=== PATIENT | male | born 1955 | race Asian ===

== ENCOUNTER 2025-09-25 12:39 | Inpatient (IN) | payer MEDICAID, OTHER ==
[~2025-09-25] VITALS: Ht 177.8 cm; Wt 66.2 kg
[2025-09-25] MEDS: HYDROcodone-ACET 5/325MG TAB PO ONE (08:57)
--- NOTE | 2025-09-25 15:01 | ED.PDOC ---
Musculoskeletal HPI Comments 70 y/o M, presents to the ED for CC of left-foot pain. Patient states, he has been experiencing left-foot erythema, swelling, and pain x1week. Patient reports, pain to worsen with ambulation and when bearing weight onto his left lower extremity. Patient denies any trauma, injury, fall, numbness, or tingling. Chief Complaint: Lower Extremity Time Seen by MD: 14:35 Reviewed Notes: Nurses Notes, Medications, Allergies Allergies: Coded Allergies: NO KNOWN ALLERGIES (Unverified , 09/25/25) Information Source: Patient Mode of Arrival: Wheelchair Location: Left Extremity Location: Foot Timing: Weeks Prehospital treatment: None Severity: Moderate Able to Move Extremity: Yes Bear Weight: No Pain: Moderate Mechanism: Spontaneous Circumstances: Spontaneous Onset of Symptoms: Spontaneous Symptoms: Swelling, Pain, Erythema DVT Risk Factors: NONE Last Tetanus: Unknown Associated signs and symptoms: Foot pain Past Medical History PAST MEDICAL HISTORY: Denies Surgical History: Denies all surgeries Family History Family History: Unknown Social History Smoker: Non-Smoker Alcohol: Denies ETOH Use Drugs: Denies Drug Use Lives In: Home Constitutional: denies: chills, diaphoresis, fatigue, fever, malaise, sweats, weakness, others EENTM: denies: blurred vision, double vision, ear bleeding, ear discharge, ear drainage, ear pain, ear ringing, eye pain, eye redness, hearing loss, mouth pain, mouth swelling, nasal discharge, nose bleeding, nose congestion, nose pain, photophobia, tearing, throat pain, throat swelling, voice changes, others Respiratory: denies: cough, hemoptysis, orthopnea, SOB at rest, shortness of breath, SOB with excertion, stridor, wheezing, others Cardiovascular: denies: chest pain, dizzy spells, diaphoresis, Dyspnea on exertion, edema, irregular heart beat, left arm pain, lightheadedness, palpitations, PND, syncope, others Gastrointestinal: denies: abdomen distended, abdominal pain, blood streaked bowels, constipated, diarrhea, dysphagia, difficulty swallowing, hematemesis, melena, nausea, poor appetite, poor fluid intake, rectal bleeding, rectal pain, vomiting, others Genitourinary: denies: burning, dysuria, flank pain, frequency, hematuria, incontinence, penile discharge, penile sore, pain, testicle pain, testicle swelling, urgency, others Neurological: denies: dizziness, fainting, headache, left sided numbness, left sided weakness, numbness, paresthesia, pre-existing deficit, right sided numbness, right sided weakness, seizure, speech problems, tingling, tremors, weakness, others Musculoskeletal: reports: others (left foot redness); denies: back pain, gout, joint pain, joint swelling, muscle pain, muscle stiffness, neck pain Integumetry: denies: bruises, change in color, change in hair/nails, dryness, laceration, lesions, lumps, rash, wounds, others Allergic/Immunocompromised: denies: Difficulty Healing, Frequent Infections, Hives, Itching, others Hematologic/Lymphatic: denies: anemia, blood clots, easy bleeding, easy bruising, swollen glands, others Endocrine: denies: excessive hunger, excessive sweating, excessive thirst, excessive urination, flushing, intolerance to cold, intolerance to heat, unexplained weight gain, unexplained weight loss, others Psychiatric: denies: anxiety, bipolar disorder, depression, hopeless, panic disorder, schizophrenia, sleepless, suicidal, others All Other Systems: Reviewed and Negative Physical Exam General Appearance: No Apparent Distress, Normal HEENT: Normal ENT Inspection, Pharynx Normal Neck: Full Range of Motion, Non-Tender, Normal, Normal Inspection Respiratory: Chest Non-Tender, Lungs Clear, No Accessory Muscle Use, No Respiratory Distress, Normal Breath Sounds Cardiovascular: No Edema, No Murmur, No Gallop, Normal Peripheral Pulses, Regular Rate/Rhythm Breast Exam: Deferred Gastrointestinal: No Organomegaly, Non Tender, No Pulsatile Mass, Normal Bowel Sounds, Soft Genitalia: Deferred Pelvic: Deferred Rectal: Deferred Extremities: No calf tenderness, Normal capillary refill, Normal inspection, Normal range of motion, Non-tender, No pedal edema Musculoskeletal : Location: Left Extremity Location: Foot Apperance: Other (erythema, delayed capillary refill) Neurologic: Alert, lapel padder II-XII nml as Tested, No Motor Deficits, Normal Affect, Normal Mood, No Sensory Deficits Cerebellar Function: Normal Reflexes: Normal Skin: Dry, Normal Color, Warm Lymphatic: No Adenopathy Was a procedure done? Was a procedure done?: No Differential Diagnosis EXT Differential Diagnosis: Cellulitis, Deep Vein Thrombosis X-Ray, Labs, Meds, VS Vital Signs Date Time Temp Pulse Resp B/P (MAP) Pulse Ox O2 Delivery O2 Flow Rate FiO2 09/25/25 17:22 94 09/25/25 17:04 98.3 99 16 144/66 (92) 98 98.3 09/25/25 16:37 95 18 98 Room Air* 0 21 09/25/25 15:50 98.6 96 16 102/57 (72) 98 98.6 09/25/25 15:37 98.5 113 18 145/86 (105) 94 98.5 09/25/25 13:40 99.0 110 20 123/74 (90) 97 99.0 09/25/25 12:45 97.0 118 18 136/81 99 97.0 Lab Test 09/25/25 17:12 09/25/25 15:44 09/25/25 14:52 Range/Units Lactic Acid Level Pending 3.5 *H 0.4-2.0 mmol/L Troponin I High Sensitivity 1229 *H 981 *H </=54 ng/L White Blood Count 12.0 H 4.4-10.8 10^3/uL Red Blood Count 4.87 4.5-5.90 10^6/uL Hemoglobin 14.6 13.5-17.5 g/dL Hematocrit 43.4 41.0-53.0 % Mean Corpuscular Volume 89.2 80.0-100.0 fL Mean Corpuscular Hemoglobin 30.0 28.0-32.0 pg Mean Corpuscular Hemoglobin Concent 33.6 32.0-36.0 g/dL Red Cell Distribution Width 13.8 11.8-14.3 % Platelet Count 319 140-450 10^3/uL Mean Platelet Volume 7.1 6.9-10.8 fL Neutrophils (%) (Auto) 81.0 H 37.0-80.0 % Lymphocytes (%) (Auto) 11.6 10.0-50.0 % Monocytes (%) (Auto) 6.8 0.0-12.0 % Eosinophils (%) (Auto) 0.3 0.0-7.0 % Basophils (%) (Auto) 0.3 0.0-2.0 % Neutrophils # (Auto) 9.7 H 1.6-8.6 10 ^3/uL Lymphocytes # (Auto) 1.4 0.4-5.4 10 ^3/uL Monocytes # (Auto) 0.8 0-1.3 10 ^3/uL Eosinophils # (Auto) 0 0-0.8 10 ^3/uL Basophils # (Auto) 0 0-0.2 10 ^3/uL Nucleated Red Blood Cells 0.1 % Prothrombin Time 10.3 9.3-11.8 sec Prothrombin Time INR 0.97 0.9-1.15 Activated Partial Thromboplast Time 27.8 24.5-34.5 SEC Sodium Level 141 136-145 mmol/L Potassium Level 4.8 3.5-5.1 mmol/L Chloride Level 106 98-107 mmol/L Carbon Dioxide Level 25 20-31 mmol/L Anion Gap 10 5-15 Blood Urea Nitrogen 56 H 9-23 mg/dL Creatinine 2.63 H 0.700-1.30 mg/dL Glomerular Filtration Rate Calc 26 >90 mL/min BUN/Creatinine Ratio 21.3 H 10.0-20.0 Serum Glucose 93 74-106 mg/dL Calcium Level 9.8 8.7-10.4 mg/dL B-Type Natriuretic Peptide 45.30 0-100 pg/mL Current Medications Medications (Trade) Dose Ordered Sig/Angelique Route Start Time Stop Time Status Last Admin Sodium Chloride 1,000 ml @ 1,000 mls/hr Q1H ONCE IV 09/25/25 16:00 09/25/25 16:59 DC 09/25/25 15:50 Cefepime HCl 50 ml @ 50 mls/hr ONCE ONCE IV 09/25/25 16:00 09/25/25 16:59 DC 09/25/25 15:53 Vancomycin HCl 250 ml @ 250 mls/hr ONCE ONCE IV 09/25/25 16:00 09/25/25 16:59 DC 09/25/25 17:27 Time of 1ST Reevaluation: 15:05 Reevaluation 1ST: Unchanged Patient Education/Counseling: Diagnosis, Treatment Family Education/Counseling: No Family Present Sepsis Sepsis Reasesment Focused Exam Orders: Laboratory Tests 09/25/25 14:52: Lactic Acid Level 3.5 09/25/25 17:12: Departure 1 Departure Time of Disposition: 17:42 (Patient with decreased circulation to the left foot however he still does have a palpable pulse. Order the patient for CT angio however patient's creatinine does not supported. We will empirically cover patient with a heparin drip and admit patient for vascular evaluation) Impression: Primary Impression: Left leg pain Additional Impressions: Left foot pain Claudication in peripheral vascular disease NSTEMI (non-ST elevated myocardial infarction) Disposition: 09 ADMITTED INPATIENT Admit to: Tele Condition: Guarded Critical Care Note Critical Care Time?: Yes Critical care comment: NSTEMI Authorized and Performed by: Hernandez Butterfield MD Total critical care time: Approximately 39 minutes Due to a high probability of clinically significant, life threatening deterioration, the patient required my highest level of preparedness to intervene emergently and I personally spent this critical care time directly and personally managing the patient. This critical care time included obtaining a history; examining the patient; pulse oximetry; ordering and review of studies; arranging urgent treatment with development of a management plan; evaluation of patient's response to treatment; frequent reassessment; and, discussions with other providers. This critical care time was performed to assess and manage the high probability of imminent, life-threatening deterioration that could result in multi-organ failure. It was exclusive of separately billable procedures and treating other patients and teaching time. Please see my other sections and the rest of the note for further information on patient assessment and treatment. Stability Stability form required: No Heart Score Heart Score: Heart Score Response (Comments) Value History N/A 0 EKG N/A 0 Age N/A 0 Risk Factors N/A 0 Troponin N/A 0 Total 0 I personally scribed for HERNANDEZ BUTTERFIELD MD ([email or web address]) on 09/25/25 at 15:01. Electronically submitted by Dolores Downs ([email or web address]). HERNANDEZ BUTTERFIELD MD Sep 25, 2025 15:01
[2025-09-25 15:23] LABS: Hematocrit 43.4 % (41.0-53.0); Hemoglobin 14.6 g/dL (13.5-17.5); Mean Corpuscular Hemoglobin 30.0 pg (28.0-32.0); Mean Corpuscular Volume 89.2 fL (80.0-100.0); Nucleated Red Blood Cells % 0.1 %
[2025-09-25 15:31] LABS: Chloride 106 mmol/L (98-107); Potassium 4.8 mmol/L (3.5-5.1); Sodium 141 mmol/L (136-145)
[2025-09-25 15:32] LABS: Anion Gap 10 (5-15); Calcium 9.8 mg/dL (8.7-10.4); Carbon Dioxide 25 mmol/L (20-31)
[2025-09-25 15:37] LABS: BUN/Creatinine Ratio 21.3 (10.0-20.0); Glucose 93 mg/dL (74-106)
[2025-09-25 15:39] LABS: Blood Urea Nitrogen 56 mg/dL (9-23); INR 0.97 (0.9-1.15); Partial Thromboplastin Time 27.8 SEC (24.5-34.5); Prothrombin Time 10.3 sec (9.3-11.8)
[2025-09-25] MEDS: SODIUM CHLORIDE 0.9% 1,000 ML IV ONE (15:50)
[2025-09-25] MEDS: CEFEPIME 1GM/50ML 50 ML IV ONE (15:53)
[2025-09-25 15:59] LABS: Lactic Acid w/Reflex 3.5 mmol/L (0.4-2.0)
[2025-09-25 16:37] VITALS: PULSE 95; RESP 18; O2SAT 98
--- NOTE | 2025-09-25 17:20 | DVH ---
EXAM: XY CHEST PORTABLE HISTORY: weakness TECHNIQUE: 1 view of the chest COMPARISON: None FINDINGS/IMPRESSION: LUNGS: No pleural effusion, consolidation, or pneumothorax. MEDIASTINUM: Unremarkable. BONES: No acute osseous abnormality. OTHER: None.
[2025-09-25] MEDS: VANCOMYCIN 1GM/250ML KIT 250 ML IV ONE (17:27)
[2025-09-25] MEDS ORDERED: HEPARIN SODIUM (PORCINE) 5000 UNITS/ML 1ML VIAL IV ONE (17:45)
[2025-09-25] MEDS ORDERED: HEPARIN DRIP/D5W 100UNITS/ML 250 ML IV SCH (17:45)
[2025-09-25] MEDS: HEPARIN SODIUM (PORCINE) 5000 UNITS/ML 1ML VIAL IV ONE (18:26)
[2025-09-25] MEDS: HEPARIN DRIP/D5W 100UNITS/ML 250 ML IV SCH (18:44)
[2025-09-25 18:47] LABS: INR 1.01 (0.9-1.15); Partial Thromboplastin Time 27.6 SEC (24.5-34.5); Prothrombin Time 10.7 sec (9.3-11.8)
[2025-09-25 18:53] LABS: Hematocrit 35.2 % (41.0-53.0); Hemoglobin 12.0 g/dL (13.5-17.5); Mean Corpuscular Hemoglobin 30.2 pg (28.0-32.0); Mean Corpuscular Volume 88.6 fL (80.0-100.0); Nucleated Red Blood Cells % 0.0 %
[2025-09-25 19:22] VITALS: PULSE 84; RESP 15; O2SAT 95
[2025-09-25] MEDS ORDERED: ATORVASTATIN 20 MG TAB PO ONE (21:00)
--- NOTE | 2025-09-25 21:07 | DVHHPRES ---
History of Present Illness Resident Creating Document: CHAITANYA KAHN RESIDENT History of Present Illness Mr Hermilo Rojo, 70-year-old male with no significant past medical history, presented to the ER with the complaints of left foot erythema and swelling, pain since last 1 week. The patient denies any trauma, fall injury, numbness or tingling. The pain is brought on by walking and improves on rest. He also reports having mild chest pain, the patient was not able to describe the characteristics of the pain. He denies any shortness of breath, fever, cough, urinary symptoms or any other complaints. Past medical history: Nothing significant, patient reports having episodes of hypotension. Past surgical history: None Allergies: None Smoke: 2 sticks per day now, before that 20 pack years. Alcohol: Every other day 1 pint Drugs: None Full code Review of Systems Cardiovascular: Chest Pain Allergies: Coded Allergies: NO KNOWN ALLERGIES (Unverified , 09/25/25) Medications Current Medications Medications Dose Ordered Sig/Angelique Route Start Time Stop Time Status Last Admin Dose Admin Heparin Sodium/ Dextrose 250 ml @ 12.24 mls/ hr [id number] IV 09/25/25 17:45 UNV Heparin Sodium/ Dextrose 250 ml @ 8 mls/hr Q24H IV 09/25/25 18:00 09/25/25 18:44 8 MLS/HR Atorvastatin Calcium 40 mg HS PO 09/25/25 22:00 UNV Exam Vital Signs Vital Signs Date Time Temp Pulse Resp B/P (MAP) Pulse Ox O2 Delivery O2 Flow Rate FiO2 09/25/25 19:22 84 15 95 Room Air* 0 21 09/25/25 19:20 97.8 115/61 (79) 97.8 Exam Pt is lying on bed General Appearance: Alert, Oriented X3, Cooperative, Mild distress HEENT: Atraumatic, Mucous membranes moist/pink Respiratory: Clear to auscultation, Normal air movement, No added sounds Cardiovascular: Regular rate, Normal S1, Normal S2, No murmurs Abdominal/ : Active bowel sounds, Soft, no distention, no tenderness Extremities: Left foot erythema and edema, Normal pulses, No tenderness/swelling Skin: No Significant rash, except past surgical scars Neuro: Normal speech, sensorimotor deficits none Psych/Mental Status: Mental status NL, Mood NL Nurse was there as transportation modeler during examination Labs/Xrays Labs Test 09/25/25 18:35 09/25/25 18:01 09/25/25 17:12 09/25/25 14:52 Range/Units White Blood Count 10.6 4.4-10.8 10^3/uL Red Blood Count 3.98 L 4.5-5.90 10^6/uL Hemoglobin 12.0 #L 13.5-17.5 g/dL Hematocrit 35.2 #L 41.0-53.0 % Mean Corpuscular Volume 88.6 80.0-100.0 fL Mean Corpuscular Hemoglobin 30.2 28.0-32.0 pg Mean Corpuscular Hemoglobin Concent 34.0 32.0-36.0 g/dL Red Cell Distribution Width 13.5 11.8-14.3 % Platelet Count 250 140-450 10^3/uL Mean Platelet Volume 7.1 6.9-10.8 fL Neutrophils (%) (Auto) 74.8 37.0-80.0 % Lymphocytes (%) (Auto) 16.0 10.0-50.0 % Monocytes (%) (Auto) 7.9 0.0-12.0 % Eosinophils (%) (Auto) 1.0 0.0-7.0 % Basophils (%) (Auto) 0.3 0.0-2.0 % Neutrophils # (Auto) 7.9 1.6-8.6 10 ^3/uL Lymphocytes # (Auto) 1.7 0.4-5.4 10 ^3/uL Monocytes # (Auto) 0.8 0-1.3 10 ^3/uL Eosinophils # (Auto) 0.1 0-0.8 10 ^3/uL Basophils # (Auto) 0 0-0.2 10 ^3/uL Nucleated Red Blood Cells 0.0 % Prothrombin Time 10.7 9.3-11.8 sec Prothrombin Time INR 1.01 0.9-1.15 Activated Partial Thromboplast Time 27.6 24.5-34.5 SEC Troponin I High Sensitivity 1514 *H </=54 ng/L Lactic Acid Level 1.8 0.4-2.0 mmol/L Sodium Level 141 136-145 mmol/L Potassium Level 4.8 3.5-5.1 mmol/L Chloride Level 106 98-107 mmol/L Carbon Dioxide Level 25 20-31 mmol/L Anion Gap 10 5-15 Blood Urea Nitrogen 56 H 9-23 mg/dL Creatinine 2.63 H 0.700-1.30 mg/dL Glomerular Filtration Rate Calc 26 >90 mL/min BUN/Creatinine Ratio 21.3 H 10.0-20.0 Serum Glucose 93 74-106 mg/dL Calcium Level 9.8 8.7-10.4 mg/dL B-Type Natriuretic Peptide 45.30 0-100 pg/mL SEPSIS Sepsis Screen Date sepsis recognized/suspect: Sep 25, 2025 Time Sepsis recognized/suspect: 1921 Recent Procedure: No On Antibiotic Therapy: No Respiratory Rate >20: No Heart Rate >90: No Temp<36 C (96.8 F) or >38.3 C: No SBP <90 or MAP <65 mmHG: No New Acute Mental Status Change: No Is the patient on CPAP, BIPAP,: No Physician Orders Blood Culture (09/25/25 14:27) Chest Portable (09/25/25 14:27) Notify Md If Map <65 Or Bp<90 (09/25/25 ) Sepsis Reassesment After Fluid (09/25/25 ) Electrocardigram (09/25/25 16:27) Electrocardigram (09/25/25 17:27) Electrocardigram (09/25/25 19:27) Consult Vascular/Endovascular (09/25/25 17:41) Platelet Monitoring (09/25/25 17:41) Vte Protocol Initiated (09/25/25 17:41) Heparin Per Standardized Proce (09/25/25 17:41) Discontinue All Im Injections (09/25/25 17:41) Platelet Monitoring (09/25/25 17:54) Heparin Per Standardized Proce (09/25/25 17:54) Discontinue All Im Injections (09/25/25 17:54) Heparin Drip/D5w 100units/Ml (09/25/25 18:00) Stat Ekg For Chest Pain (09/25/25 17:54) PTPTT (09/26/25 00:00) Heparin Per Pharmacy Protocol (09/25/25 18:04) Admit (09/25/25 20:55) Allergies (09/25/25 20:55) Code Status (09/25/25 20:55) Complete Blood Count (09/26/25 04:00) Comprehensive Metabolic Panel (09/26/25 04:00) Echo 2d Mode Cardiac Dop (09/25/25 20:55) Oxygen By Nasal Cannula (09/25/25 20:55) Notify Of Changes From Base (09/25/25 20:55) Glass Sander For 24 Hours (09/25/25 20:55) Emergency Dysrhythmia Protocol (09/25/25 20:55) Rhythm Strips Once Every Shift (09/25/25 20:55) Bilat Lower Dvt (09/25/25 20:59) Atorvastatin (Lipitor) (09/25/25 21:00) Atorvastatin (Lipitor) (09/25/25 22:00) * Cardiology Consult (09/25/25 20:59) Urinalysis (09/25/25 21:04) Drug Screen (09/25/25 21:04) Bilat Low Ext Art Duplex (09/25/25 21:05) Vital Signs Date Time Temp Pulse Resp B/P (MAP) Pulse Ox O2 Delivery O2 Flow Rate FiO2 09/25/25 19:22 84 15 95 Room Air* 0 21 09/25/25 19:20 97.8 84 15 115/61 (79) 95 97.8 09/25/25 18:53 88 18 129/73 (91) 94 09/25/25 17:22 94 09/25/25 17:04 98.3 99 16 144/66 (92) 98 98.3 09/25/25 16:37 95 18 98 Room Air* 0 21 09/25/25 15:50 98.6 96 16 102/57 (72) 98 98.6 09/25/25 15:37 98.5 113 18 145/86 (105) 94 98.5 09/25/25 13:40 99.0 110 20 123/74 (90) 97 99.0 Laboratory Tests Test 09/25/25 14:52 09/25/25 17:12 09/25/25 18:35 Lactic Acid Level 3.5 mmol/L (0.4-2.0) *H 1.8 mmol/L (0.4-2.0) White Blood Count 12.0 10^3/uL (4.4-10.8) H 10.6 10^3/uL (4.4-10.8) Medications Medications Dose Ordered Sig/Angelique Route Start Time Stop Time Status Last Admin Dose Admin Cefepime HCl 50 ml @ 50 mls/hr ONCE ONCE IV 09/25/25 16:00 09/25/25 16:59 DC 09/25/25 15:53 50 MLS/HR Heparin Sodium (Porcine) 4,000 units ONCE ONCE IV 09/25/25 18:00 09/25/25 18:04 DC 09/25/25 18:26 4,000 UNITS Heparin Sodium/ Dextrose 250 ml @ 8 mls/hr Q24H IV 09/25/25 18:00 09/25/25 18:44 8 MLS/HR Sodium Chloride 1,000 ml @ 1,000 mls/hr Q1H ONCE IV 09/25/25 16:00 09/25/25 16:59 DC 09/25/25 15:50 1,000 MLS/HR Vancomycin HCl 250 ml @ 250 mls/hr ONCE ONCE IV 09/25/25 16:00 09/25/25 16:59 DC 09/25/25 17:27 250 MLS/HR Assessment/Plan Assessment/Plan Left foot cellulitis DVT ruled out Lactic acid downtrending Leukocytosis, downtrending Left lower extremity venous ultrasound: DVT ruled out IV cefepime and IV vancomycin (renal dose adjustment done) Chest pain rule out ACS NSTEMI type 1 versus type 2 ELIS score 3 HEART score 8 TAWNY score 121 EKG: T-wave inversion, ischemic changes Troponin trending up Heparin drip given Atorvastatin 40 mg Cardiology consultation done SHIMON on CKD likely due to VMN SHIMON likely due to cardiorenal syndrome IV fluid Monitor labs GI prophylaxis: Pantoprazole DVT prophylaxis: On heparin drip Diet: Cardiac Goals of care discussed with the patient for more than 27 minutes: Full code status Case discussed with Dr. Archuleta, patient and RN Plan discussed with: Patient, Other (RN) My Orders Orders - CHAITANYA KAHN RESIDENT Procedure Category Date Status Time Admit ADMIT 09/25/25 Transmitted 20:55 Allergies REJI 09/25/25 In Process 20:55 Code Status CODE 09/25/25 Transmitted 20:55 Complete Blood Count LAB 09/26/25 Verified 04:00 Comprehensive LAB 09/26/25 Verified Metabolic Panel 04:00 Echo 2d Mode Cardiac US 09/25/25 Logged DOP 20:55 Oxygen By Nasal RT 09/25/25 Transmitted Cannula 20:55 Notify Of Changes [facility] 09/25/25 In Process From Base 20:55 Glass Sander For [facility] 09/25/25 In Process 24 Hours 20:55 Emergency Dysrhythmia [facility] 09/25/25 In Process Protocol 20:55 Rhythm Strips Once [facility] 09/25/25 In Process Every Shift 20:55 Bilat Lower Dvt US 09/25/25 Logged 20:59 Atorvastatin (Lipitor) PHA 09/25/25 Logged 21:00 Atorvastatin (Lipitor) PHA 09/25/25 Logged 22:00 * Cardiology Consult CONS 09/25/25 Transmitted 20:59 Urinalysis LAB 09/25/25 Logged 21:04 Drug Screen LAB 09/25/25 Logged 21:04 Bilat Low Ext Art US 09/25/25 Verified Duplex 21:05 Visit Coding STANDARD RES Billing Provider: ELIAS ARCHULETA MD Date of Service if different f: Sep 25, 2025 CHAITANYA KAHN RESIDENT Sep 25, 2025 21:07 SHANELL LUGO RESIDENT Sep 26, 2025 02:41
[2025-09-25] MEDS: ATORVASTATIN 20 MG TAB PO SCH (21:49)
[2025-09-25 22:43] LABS: Alanine Aminotransferase 18.0 U/L (7-40); Albumin 3.7 g/dL (3.2-4.8); Alkaline Phosphatase 105.0 U/L (46-116); Bilirubin, Direct 0.1 mg/dL (<0.3); Total Protein 6.1 g/dL (5.7-8.2)
[2025-09-25 22:53] LABS: Bilirubin, Total 0.3 mg/dL (0.2-1.0)
--- NOTE | 2025-09-25 23:14 | DVH ---
Left lower extremity venous duplex Clinical History: Lt foot pain,Rule out DVT Comparison: None Technique: Duplex Doppler evaluation of the deep venous system of the left lower extremity from the common femoral vein to the popliteal vein including color Doppler and spectral/pulsed waveform analysis was performed. Findings: The common femoral vein demonstrates appropriate compressibility and waveform variability. There is compressibility/patency of the great saphenous vein at the proximal thigh. The femoral vein demonstrates appropriate compressibility and waveform variability. The deep femoral vein demonstrates appropriate compressibility and waveform variability. The popliteal vein demonstrates appropriate compressibility and waveform variability. There is normal compressibility at the tibioperoneal trunk. Impression: 1. No left femoropopliteal venous thrombosis. 2. Contralateral common femoral vein is patent.
[2025-09-26] VITALS (10 sets, daily range): BP systolic 94–153; BP diastolic 53–82; PULSE 63–90; RESP 12–18; TEMP 98.4–98.5; O2SAT 95–99
[2025-09-26 00:38] LABS: Urine Protein, UAD Negative (Negative)
[2025-09-26 00:44] LABS: Hematocrit 35.1 % (41.0-53.0); Hemoglobin 11.9 g/dL (13.5-17.5); Mean Corpuscular Hemoglobin 30.1 pg (28.0-32.0); Mean Corpuscular Volume 88.8 fL (80.0-100.0); Nucleated Red Blood Cells % 0.0 %
[2025-09-26 00:51] LABS: Alanine Aminotransferase 18 U/L (7-40); Albumin 3.7 g/dL (3.2-4.8); Alkaline Phosphatase 100 U/L (46-116); Anion Gap 11 (5-15); BUN/Creatinine Ratio 22.0 (10.0-20.0); Carbon Dioxide 22 mmol/L (20-31); Glucose 96 mg/dL (74-106); Potassium 4.4 mmol/L (3.5-5.1); Sodium 142 mmol/L (136-145); Total Protein 6.3 g/dL (5.7-8.2)
[2025-09-26 00:52] LABS: Bilirubin, Total 0.5 mg/dL (0.2-1.0)
[2025-09-26 00:56] LABS: Blood Urea Nitrogen 42 mg/dL (9-23); Calcium 8.4 mg/dL (8.7-10.4); Chloride 109 mmol/L (98-107)
[2025-09-26 01:10] LABS: INR 1.05 (0.9-1.15); Prothrombin Time 11.1 sec (9.3-11.8)
[2025-09-26 01:19] LABS: Partial Thromboplastin Time 102.3 SEC (24.5-34.5)
[2025-09-26] MEDS: CLOPIDOGREL BISULFATE 75 MG TAB PO ONE ×2 (01:27→21:46)
[2025-09-26 01:37] LABS: Amphetamine Screen, Urine Neg (NEGATIVE)
[2025-09-26 01:39] LABS: Barbiturate Scree,Urine Neg (NEGATIVE); Benzodiazephine Screen, Urine Neg (NEGATIVE); Cannabinoid Screen, Urine Neg (NEGATIVE); Cocaine Screen, Urine Neg (NEGATIVE); Opiate Scree,Urine Neg (NEGATIVE); Phencyclidine Screen, Urine Neg (NEGATIVE)
[2025-09-26 02:49] LABS: INR 1.05 (0.9-1.15); Prothrombin Time 11.1 sec (9.3-11.8)
[2025-09-26 03:10] LABS: COVID19 ANTIGEN SOFIA FIA NEGATIVE (NEGATIVE)
[2025-09-26 03:12] LABS: Partial Thromboplastin Time 96.9 SEC (24.5-34.5)
[2025-09-26] MEDS ORDERED: HEPARIN DRIP/D5W 100UNITS/ML 250 ML IV SCH (03:30)
[2025-09-26] MEDS: HEPARIN DRIP/D5W 100UNITS/ML 250 ML IV SCH ×2 (04:37→14:01)
[2025-09-26] MEDS: PANTOPRAZOLE 40 MG TAB PO SCH (05:14)
--- NOTE | 2025-09-26 06:57 | ECG ---
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
[2025-09-26] MEDS ORDERED: VANCOMYCIN PER PHARMACY 0 MG IV SCH (09:30)
[2025-09-26] MEDS: ASPirin-EC 81 mg tab PO SCH (11:07)
[2025-09-26] MEDS: CEFEPIME 1GM/50ML 50 ML IV SCH (11:08)
[2025-09-26 11:20] LABS: Triglycerides 78 mg/dL (< 150)
[2025-09-26 11:23] LABS: Cholesterol 118 mg/dL (< 200); HDL Cholesterol 41 mg/dL (40-59)
--- NOTE | 2025-09-26 11:26 | DVHINCON2 ---
[facility] 09/26/25 1126: Date Seen: Sep 26, 2025 Referring Physician MD Lyn Reason for Consultation NSTEMI, ECG ischemic T-wave changes History of Present Illness This is a 70-year-old man who presented to the emergency room with a chief complaint of left lower extremity pain. The patient reports left lower extremity pain worse upon palpation during the past two weeks and progressively getting worse. During admission he also complained of chest pain described as substernal, squeezing in nature, intermittent, nonradiating, non provoked, and not associated with any other symptoms. At time of assessment the patient denied any active chest pain. He has undergone multiple 12 lead electrocardiogram revealing a sinus rhythm with progressive changes to multiple leads with mild ST-elevation to anterior/inferior leads as well as DC-depression to inferior leads. Troponin levels are trending up with latest at 1,500s ng/L. He is currently on a heparin drip per pharmacy protocol. Significant medical history includes hypertension, dyslipidemia, vitamin-D deficiency, active tobacco use with a history of 20 pack years, and alcohol dependence with intake of hard liquor on daily basis. Past Medical History Past medical history reviewed. No other significant than mentioned above. Past Surgical History Past surgical history reviewed. No other significant than mentioned above. Family History Family history reviewed. Significant for mother with CVA. Social History Denies the use of illicit drugs. See HPI. Allergies: Coded Allergies: NO KNOWN ALLERGIES (Unverified , 09/25/25) Home Meds Home medications reviewed. Current Medications Current Medications Medications (Trade) Dose Ordered Sig/Angelique Route PRN Reason Start Time Stop Time Status Last Admin Heparin Sodium/ Dextrose 250 ml @ 12.24 mls/ hr [id number] IV 09/25/25 17:45 UNV Heparin Sodium/ Dextrose 250 ml @ 8 mls/hr Q24H IV 09/25/25 18:00 09/26/25 03:30 DC 09/25/25 18:44 Atorvastatin Calcium (Lipitor) 40 mg HS PO 09/25/25 21:30 09/25/25 21:49 Acetaminophen/ Hydrocodone Bitart ([place] 5/325MG Tab) 1 tab Q6HPRN PRN PO MODERATE PAIN (4-6 PAIN SCALE) 09/25/25 22:15 Cefepime HCl 50 ml @ 12.5 mls/hr DAILY IV 09/26/25 10:00 09/26/25 11:08 Pantoprazole Sodium (Protonix Tablet) 40 mg DAILY@0600 PO 09/26/25 06:00 09/26/25 05:14 Heparin Sodium/ Dextrose 250 ml @ 5 mls/hr Q24H IV 09/26/25 03:30 09/26/25 03:35 DC Heparin Sodium/ Dextrose 250 ml @ 5 mls/hr Q24H IV 09/26/25 04:30 09/26/25 04:37 Vancomycin HCl 0 ml @ 0 mls/hr PER PHARMACY IV 09/26/25 09:30 Aspirin (Ecotrin Enteric Coated Tablet) 81 mg DAILY PO 09/26/25 10:00 09/26/25 11:07 Review of Systems Constitutional: No symptom reported Ears, Nose, & Throat: No symptom reported Eyes: No symptom reported Neurological: No symptoms reported Pulmonary/Respiratory: No symptom reported Cardiovascular: Chest pain Gastrointestinal: No symptom reported Genitourinary: No symptom reported Musculoskeletal: Left lower extremity pain Skin: No symptom reported Psychiatric: No symptom reported Endocrine: No symptom reported Hemotologic/Lymphatic: No symptom reported Vital Signs Vital Signs Date Time Temp Pulse Resp B/P (MAP) Pulse Ox O2 Delivery O2 Flow Rate FiO2 09/26/25 08:00 71 09/26/25 07:27 18 96 Room Air* 0 21 09/26/25 07:27 98.9 115/65 (82) 98.9 Physical Exam General Appearance: Cooperative. Well developed. Well nourished. In no acute distress Head Exam: Normal inspection Neck Exam: Normal inspection. Non-tender. Normal alignment Pulmonary/Respiratory: Chest non-tender. Clear bilateral breath sounds Cardiovascular/Chest: Regular rate and rhythm. S1, S2. Sinus rhythm with pr ogressive ST-elevation to inferior and anterior leads. No murmurs. No JVD. Peripheral Pulses: 2+ Radial (R). 2+ Radial (L). 2+ Pedal (R). 2+ Pedal (L) Abdominal Exam: Normal bowel sounds. Soft. Ankle Exam: Negative ankle edema Lower extremities: Negative lower extremity edema. Nonpalpable left pedal pulse, dependent rubor present Neuro/Mental Status: A&O x4. Coherent Thoughts/Psych: Normal thought pattern. Appropriate mood and affect. Good judgement and insight Appearance: In no acute distress Skin Exam: Normal inspection. Normal color. Warm. Dry Labs/Diagnostic Data Labs Test 09/26/25 01:50 09/26/25 01:40 09/26/25 00:23 09/26/25 00:14 Range/Units Prothrombin Time 11.1 9.3-11.8 sec Prothrombin Time INR 1.05 0.9-1.15 Activated Partial Thromboplast Time 96.9 *H 24.5-34.5 SEC Influenza Type A Antigen Negative Negative Influenza Type B Antigen Negative Negative SARS-CoV-2 Antigen (Rapid) Negative NEGATIVE Urine Color Colorless Yellow Urine Clarity Clear Clear Urine pH 5.0 5.0-9.0 Urine Specific [place] 1.013 1.001-1.035 Urine Protein Negative Negative Urine Ketones Negative Negative Urine Blood Negative Negative /uL Urine Nitrite Negative Negative Urine Bilirubin Negative Negative Urine Urobilinogen Normal Negative mg/dL Urine Leukocyte Esterase Negative Negative /uL Urine RBC <1 0 - 3 /hpf Urine Microscopic WBC < 1 0-3 /HPF Urine Squamous Epithelial Cells None seen <5 /hpf Urine Bacteria None seen None Seen /hpf Urine Glucose Normal Normal mg/dL Urine Opiates Screen Neg NEGATIVE Urine Fentanyl Screen Neg NEGATIVE Urine Barbiturates Screen Neg NEGATIVE Urine Phencyclidine Screen Neg NEGATIVE Urine Amphetamines Screen Neg NEGATIVE Urine Benzodiazepines Screen Neg NEGATIVE Urine Cocaine Screen Neg NEGATIVE Urine Cannabinoids Screen Neg NEGATIVE White Blood Count 10.1 4.4-10.8 10^3/uL Red Blood Count 3.95 L 4.5-5.90 10^6/uL Hemoglobin 11.9 L 13.5-17.5 g/dL Hematocrit 35.1 L 41.0-53.0 % Mean Corpuscular Volume 88.8 80.0-100.0 fL Mean Corpuscular Hemoglobin 30.1 28.0-32.0 pg Mean Corpuscular Hemoglobin Concent 33.9 32.0-36.0 g/dL Red Cell Distribution Width 13.4 11.8-14.3 % Platelet Count 249 140-450 10^3/uL Mean Platelet Volume 7.3 6.9-10.8 fL Neutrophils (%) (Auto) 70.7 37.0-80.0 % Lymphocytes (%) (Auto) 19.9 10.0-50.0 % Monocytes (%) (Auto) 7.7 0.0-12.0 % Eosinophils (%) (Auto) 1.4 0.0-7.0 % Basophils (%) (Auto) 0.3 0.0-2.0 % Neutrophils # (Auto) 7.1 1.6-8.6 10 ^3/uL Lymphocytes # (Auto) 2.0 0.4-5.4 10 ^3/uL Monocytes # (Auto) 0.8 0-1.3 10 ^3/uL Eosinophils # (Auto) 0.1 0-0.8 10 ^3/uL Basophils # (Auto) 0 0-0.2 10 ^3/uL Nucleated Red Blood Cells 0.0 % Sodium Level 142 136-145 mmol/L Potassium Level 4.4 3.5-5.1 mmol/L Chloride Level 109 H 98-107 mmol/L Carbon Dioxide Level 22 20-31 mmol/L Anion Gap 11 5-15 Blood Urea Nitrogen 42 #H 9-23 mg/dL Creatinine 1.91 H 0.700-1.30 mg/dL Glomerular Filtration Rate Calc 38 >90 mL/min BUN/Creatinine Ratio 22.0 H 10.0-20.0 Serum Glucose 96 74-106 mg/dL Calcium Level 8.4 L 8.7-10.4 mg/dL Total Bilirubin 0.5 0.2-1.0 mg/dL Aspartate Amino Transferase (AST) 23 13-40 U/L Alanine Aminotransferase (ALT) 18 7-40 U/L Alkaline Phosphatase 100 46-116 U/L Total Protein 6.3 5.7-8.2 g/dL Albumin 3.7 3.2-4.8 g/dL Test 09/25/25 18:01 09/25/25 17:12 09/25/25 15:00 09/25/25 14:52 Range/Units Direct Bilirubin 0.1 <0.3 mg/dL Troponin I High Sensitivity 1514 *H </=54 ng/L Lactic Acid Level 1.8 0.4-2.0 mmol/L Vitamin B12 Level 531 211-911 pg/mL B-Type Natriuretic Peptide 45.30 0-100 pg/mL Vitamin D 25-Hydroxy 58.5 30.0-100 ng/mL Thyroid Stimulating Hormone (TSH) 0.56 0.55-4.78 uIU/mL Assessment Acute inferior/anterior wall myocardial infarction Rule out acute limb ischemia, LLE Hypertension Dyslipidemia Likely SHIMON on CKD Diabetes mellitus, newly diagnosed Alcohol/cigarette dependence Plan/Recommendation (Dr. Childers) Case discussed in full detail with Dr. Childers. The patient has been scheduled for emergent cardiac catheterization and coronary angiogram at first available. All risks and benefits of the procedure were discussed with the patient in full detail who agrees to proceed with intervention. All questions answered. In the meantime, obtain a lower extremity duplex to rule out acute limb ischemia. The patient has been tentatively scheduled for a lower extremity angiogram as well for which he agreed. In the meantime, initiate renal hydration and obtain a Nephrology consultation given high-risk for contrast induced nephropathy. Obtain a transthoracic echocardiogram to rule out structural heart disease. Continue heparin drip per pharmacy protocol as well as single antiplatelet therapy and lipid lowering agent. Initiate nicotine patch and smoking cessation consult. Monitor ECG changes closely and notify. Continue ACS protocol. Further orders per clinical course. Thank you for allowing us to participate in this patient's care. Please call if you have any questions or concerns. Critical care time: 60 minutes. This medical document was created using an electronic medical record system with voice recognition software and computeriz ed dictation system. Although this document has been carefully reviewed, there might still be some phonetic and typographical errors. Occasional wrong-word or ``sound-alike substitutions may have occurred due to the inherent limitations of voice recognition software. These areas are purely typographical due to imperfections of the software programs and do not reflect any compromise in the patient's medical care. Please read the chart carefully and recognize, using context, where these substitutions have occurred. Plan discussed with: Patient, Other NYHA Physical activity limitations: NA Date of Service: Sep 26, 2025 Billing Provider: [facility] Common Codes: 90257-[id number] CARE 30-74 MIN JESÚS CHILDERS MD 09/26/25 1329: Allergies: Coded Allergies: NO KNOWN ALLERGIES (Unverified , 09/25/25) Plan/Recommendation pt seen with cv team at bedside stat check echo pt has abnormal ecg whellens appearance no chest pain, waited 10 mins for adult daycare coordinator on phone agreed to [facility] today pt has pad noted on US showing SFA and pop disease non compliant high risk pt , tobacco Plan discussed with: Patient [facility] Sep 26, 2025 11:26 JESÚS CHILDERS MD Sep 26, 2025 13:29
[2025-09-26] MEDS: SODIUM CHLORIDE 0.9% 1,000 ML IV ONE (11:30)
[2025-09-26] MEDS: NICOTINE 7MG/24HR TOPICAL PATCH TD ONE (12:55)
--- NOTE | 2025-09-26 12:57 | DVH ---
BILATERAL Lower Extremity Arterial Duplex Date: 09/26/2025 11:43 AM Clinical History: Pain rule out acute limb ischemia Comparison: None Technique: Duplex Doppler evaluation including color Doppler and spectral/pulsed waveform analysis of the lower extremity arteries was performed. Finding: RIGHT: Peak systolic velocities are as follows: PERPETUAL INVENTORY CLERK 131 cm/s triphasic waveform Deep femoral 178 cm/s triphasic waveform SFA proximal 49 cm/s triphasic waveform SFA mid-portion 151 cm/s triphasic waveform SFA distal 39 cm/s monophasic waveform Popliteal proximal artery 31 cm/s monophasic waveform Popliteal artery distally 47 cm/sec monophasic waveform Posterior tibial 44 cm/s monophasic waveform Anterior tibial 24 cm/s monophasic waveform Dorsalis pedis 14 cm/s monophasic waveform The waveforms are triphasic waveform to the distal right superficial femoral artery. Monophasic waveform distally to the foot.. LEFT: Peak systolic velocities are as follows: PERPETUAL INVENTORY CLERK 2002 cm/s triphasic waveform 50-80% stenosis Deep femoral 81 cm/s triphasic waveform SFA proximal 27 cm/s triphasic waveform SFA mid-portion 170 cm/s triphasic waveform SFA distal 27 cm/s triphasic waveform Popliteal proximal artery 34 cm/s biphasic waveform. Distal popliteal artery 32 cm/sec monophasic waveform Posterior tibial 30 cm/s monophasic waveform Anterior tibial 23 cm/s monophasic waveform Dorsalis pedis 12 cm/s monophasic waveform The waveforms are triphasic waveform from the common femoral artery to the distal superficial femoral artery. Biphasic waveform in the proximal popliteal artery. Monophasic waveform in the distal popliteal artery and distally to the foot. REFERENCE VALUES, [facility] ([facility]) vascular Imaging Lab Criteria: Peak systolic velocity ranges (in cm/sec) are as follows: <150 cm/s - <20 % stenosis 150-200 cm/s - 20-49% stenosis 200-300 cm/s - 50-75% stenosis >300 cm/s -> 75% stenosis IMPRESSION: 1. There is triphasic waveform to the distal right superficial femoral artery. Monophasic waveform from the distal right superficial femoral artery to the dorsalis pedis. 2. There is triphasic waveform from the left common femoral artery to the distal left superficial femoral artery with 50-80% stenosis in the common femoral artery. Scattered plaque focal areas of narrowing throughout the left superficial femoral artery. There is biphasic waveform in the proximal popliteal artery and monophasic waveform in the distal popliteal artery to the foot 3. No significant focal stenosis is identified.
--- NOTE | 2025-09-26 13:09 | DVHSR ---
APPROVED REPORT EXAM: Two-dimensional and M-mode echocardiogram with Doppler and color Doppler. Blood Pressure: 103/71 mmHg INDICATION NSTEMI Rule out structural heart disease RISK FACTORS Height: 5'10", Weight: 140 DIMENSIONS LVDd 3.5 (3.8-5.7cm) LA (2D) 3.4 (1.9-4.0cm) Aortic Root 3.9 (2.0-3.7cm) LVDs 2.2 (2.5-4.0cm) LA (MM) (1.9-4.0cm) Aortic Cusp Exc 2.0 (1.5-2.0cm) EF (%) 65.0 (55-70%) Rt. Atrium 3.3 (1.9-4.0cm) Asc. Aorta cm IVSd 1.2 (0.7-1.1cm) RV (D) 3.0 (1.8-2.4cm) PWd 1.1 (0.7-1.1cm) Mitral Valve Mitral Mitral Stenosis E wave 0.36m/s MV Mean GR. mmHg A wave 0.98m/s MV Peak GR. mmHg E/A ratio 0.4 2D MVA cm2 DECEL Time 410ms PRESS 1/2 Time ms Aortic Valve Aortic Valve Aortic Stenosis V1 1.93m/s AO Mean GR. 9mmHg V2 1.90m/s AO Peak GR. 14mmHg LVOT Diameter 2.0 (1.8-2.4cm) Doppler HARRISON 3.19cm2 AI P 1/2 Time 498.24ms Pulmonic Valve V2 0.98m/s Conclusion lvef 60% apex is WMA, hypokietnic moderate LVH, sigmoid septum mild to moderate oartic regurg
[2025-09-26 13:39] LABS: INR 1.03 (0.9-1.15); Partial Thromboplastin Time 41.0 SEC (24.5-34.5); Prothrombin Time 10.9 sec (9.3-11.8)
[2025-09-26] MEDS: IODIXANOL 320MG/ML 100ML BTL IV ONE ×2 (13:57)
[2025-09-26] MEDS: ANGIOMAX 250 MG VIAL IV ONE (14:45)
[2025-09-26] MEDS: VANCOMYCIN 750MG KIT 100 ML IV ONE ×2 (14:45→17:43)
[2025-09-26] MEDS: fentaNYL CITRATE 100 MCG/2 ML VL ONE (14:45)
[2025-09-26] MEDS: VERAPAMIL 2.5MG/ML INJ 2ML VIAL IV ONE (14:45)
[2025-09-26] MEDS: SODIUM CHL 0.9% 50 ML ONE (14:46)
[2025-09-26] MEDS: LIDOCAINE 2%HCL (LOCAL ANESTH.) INJ 20ML MDV ONE (14:46)
[2025-09-26] MEDS: MIDAZOLAM HCL 2MG/2ML 2ml VIAL (1mg/ml) ONE (14:46)
--- NOTE | 2025-09-26 15:25 | DVHPNRES ---
Progress Note Date Seen: Sep 26, 2025 Resident Creating Document: YVON SWAN RESIDENT Medical Necessity Reason Pt with a Central, PICC or Fol: No Subjective Review of Systems Hermilo Rojo is a 70-year-old male with past medical history of dyslipidemia presented with complaints of left foot pain, erythema and swelling since 3 days. Patient says that the complaints has been ongoing for the past 2 years, but exacerbated in the past 3 days. He also complains of associated chest pain and shortness of breaths. He denies any fever, chills,cough or other symptoms. patient complains of extreme pain when walking. PMHx: Dyslipidemia PSHx: none Family history: nonrelevant Social history: 30 pack year smoking history, history of alcohol abuse( stopped 2 years back ) Home medication: losartan hydrochlorothiazide, atorvastatin, aspirin, amlodipine Allergic history: no known allergies General: patient denies fever, fatigue, weaknes, sweating, any recent changes in appetite and weight HEENT: No headaches, visiual changes, hearing loss, tinnitus, nasal congestion and discharge, and sore throat. Cardiovascular: complains of chest pain and shortness of bread Respiratory: No cough, and wheezing. Gastrointestinal: Denies nausea, vomiting, dysphagia, odynophagia, heartburn, abdominal pain, flatulence, bloating, diarrhea, constipation, change in stool, or blood in stool. Genitourinary: No dysuria, hematuria, discharge, frequency, urgency, nocturia, incontinence, and urinary retention. Endocrine: No heat or cold intolerance, polydipsia, polyuria, and polyphagia. Neurological: No dizziness, extremity weakness and numbness, tremors, gait disturbance, seizures, and memory impairment. Psychiatric: Denies depression, anxiety,or insomnia. Musculoskeletal: complains of pain and swelling in the left foot Skin: No rashes, itching, skin lesion, changes in hair, nail, skin texture and breast. Hematologic/Lymphatic: Denies easy bruising, bleeding tendencies, or lymph node enlargement. Objective vital signs Vital Sign Date Time Temp Pulse Resp B/P (MAP) Pulse Ox O2 Delivery O2 Flow Rate FiO2 09/26/25 14:12 74 13 117/61 (79) 98 09/26/25 07:27 Room Air* 0 21 09/26/25 07:27 98.9 98.9 Total Intake and Output 09/25/25 09/25/25 09/26/25 15:00 23:00 07:00 Intake Total 2300 ml Balance 2300 ml medications Current Medications Medications Dose Ordered Sig/Angelique Route Start Time Stop Time Status Last Admin Dose Admin Heparin Sodium/ Dextrose 250 ml @ 12.24 mls/ hr [id number] IV 09/25/25 17:45 UNV Atorvastatin Calcium 40 mg HS PO 09/25/25 21:30 09/25/25 21:49 40 MG Acetaminophen/ Hydrocodone Bitart 1 tab Q6HPRN PRN PO 09/25/25 22:15 Cefepime HCl 50 ml @ 12.5 mls/hr DAILY IV 09/26/25 10:00 09/26/25 11:08 12.5 MLS/HR Pantoprazole Sodium 40 mg DAILY@0600 PO 09/26/25 06:00 09/26/25 05:14 40 MG Vancomycin HCl 0 ml @ 0 mls/hr PER PHARMACY IV 09/26/25 09:30 Aspirin 81 mg DAILY PO 09/26/25 10:00 09/26/25 11:07 81 MG Nicotine 1 patch DAILY TD 09/27/25 10:00 Heparin Sodium/ Dextrose 250 ml @ 7 mls/hr Q24H IV 09/26/25 14:00 09/26/25 14:01 7 MLS/HR Examination General Appearance: Alert, Oriented X3, Cooperative, No acute distress HEENT: Atraumatic, PERRLA, EOMI, Mucous membrane moist/pink Respiratory: Clear to auscultation, Normal air movement Cardiovascular: Regular rate, Normal S1, Normal S2, No murmurs, no chest wall tenderness Abdominal: Normal bowel sounds, Soft, No tenderness, No hepatospenomegaly, No masses Extremities: swelling, erythema and tenderness in the left foot. 1X1cm ulcer in the left foot, present on admission Skin: No rashes, No breakdown, No significant lesion Neuro: Normal gait, Normal speech, Strength at 5/5 X4 ext, Normal tone, Sensation intact, Cranial nerves 3-12 NL, Reflexes 2+ Psych/Mental Status: Mental status NL, Mood NL laboratory and microbiology Laboratory Tests 09/26/25 00:14 Test 09/26/25 00:14 Range/Units Serum Glucose 96 74-106 mg/dL Microbiology Date/Time Source Procedure Growth Status 09/25/25 15:00 Blood Blood Culture - Preliminary NO GROWTH AFTER 24 HOURS OF INCUBATION. Resulted Problem List/Assessment/Plan Problem List/Assessment/Plan Assessment/Plan severe sepsis due to below Left foot cellulitis peripheral arterial disease DVT ruled out Ischaemic ulcer left foot Lactic acid downtrending Leukocytosis, downtrending Left lower extremity venous ultrasound: DVT ruled out IV cefepime and IV vancomycin (renal dose adjustment done) duplex arterial ultrasound: 50-80% stenosis in the left common femoral artery. vascular surgery consult follow cultures wound consult Chest pain rule out ACS NSTEMI type 1 versus type 2 ELIS score 3 HEART score 8 TANWY score 121 EKG: T-wave inversion, ischemic changes Troponin trending up Heparin drip given Atorvastatin 40 mg Cardiology consultation done SHIMON on CKD likely due to VMN IV fluid Monitor labs dyslipidemia Continue home medications Follow lipid panel Pre diabetes, newly diagnosed Follow up blood glucose levels Target in-hospital blood glucose below 180 GI prophylaxis: Pantoprazole DVT prophylaxis: On heparin drip Diet: Cardiac Goals of care discussed Full code status Case discussed with Dr. Kenney Plan discussed with: Patient My Orders My Orders Orders - YVON SWAN RESIDENT Procedure Category Date Status Time Vancomycin Per PHA 09/26/25 In Process Pharmacy 09:30 * Cardiology Consult CONS 09/26/25 Transmitted 12:28 * Wound Consult CONS 09/26/25 Transmitted Vancomycin 750mg Kit PHA 09/26/25 In Process (Vancomycin Hcl) 14:45 Creatinine LAB 09/27/25 Verified 04:00 Vancomycin,Random LAB 09/27/25 Verified 04:00 Vancomycin Per REJI 09/26/25 In Process Pharmacy Protoc 14:31 Fentanyl Citrate PHA 09/26/25 In Process Injection 14:45 Date of Service: Sep 26, 2025 Billing Provider: JUNG SCHNEIDER MD Common Visit Codes: [id number] INP/OBS CARE(HIGH) YVON SWAN RESIDENT Sep 26, 2025 15:25
--- NOTE | 2025-09-26 15:25 | DVHOP2 ---
Operative Report Operative Report CARDIAC CARDIOLOGY COORDINATOR PROCEDURE REPORT [place], [place] Date of Service: 09/26/25 Automobile Brakes Bonder: Jesús Childers MD PROCEDURES PERFORMED: Coronary angiogram, conscious sedation administration and supervision, less than 15 minutes; fluoroscopy use and interpretation. sedation 15-30 mins, PTCA 1 vessel, PCI 1 vessel, acute CT intervention, IVL shockwave lithotroipsy PREOPERATIVE DIAGNOSES: NSTEMi POSTOP DIAGNOSIS: NSTEMI severe 1 v cad DESCRIPTION OF PROCEDURE: The patient or appropriate family signed informed consent understanding the risks, benefits and alternatives of the procedure, they wished to proceed. The patient was brought to the cardiac label sewer in n.p.o. state. The patient was prepped in a sterile fashion. Sedation was used per cardiac cath protocol. I administered 2 mL of 2% lidocaine to the right wrist. With an antegrade front wall puncture. I cannulated the right radial artery and placed a 6-[place] Glidesheath slender. Next, an intra-arterial spasmolytic was administered. Next, a - 6French Cardwell catheter andXB 3.5 guide and were used for coronary angiogram and LVEDP measurement and pressure pullback. At the completion of procedure, all guides and wires were removed, and there were no immediate complications. FINDINGS: RCA: Moderate vessel off the right sinus of Valsalva, there is a distal rca 65% stenosis, rpL has 90% diffuse small vessel disease LEFT MAIN: Moderate size left main, it bifurcates into LAD and circumflex. no severe stenosis CIRCUMFLEX: Moderate caliber vessel coming off the left main. patent prox CX. OM1 has a 70% distal stenosis but small vessel <2 mm LAD: LAD is a moderate caliber vessel coming of the left main. mid LAD has 99% ruptured plaque. distal LAD has long 60% stenosis. apical LAD has mild plaque INTERVENTION: We decided to proceed with coronary intervention. I started with a 6F ___XB 3.5 _ Guide to intubate the _LM _. Angiomax bolus and gtt was started. Fo llowing this, I decided to wire using an .014 BMW across the culprit lesion with ease. At this time, we performed balloon angioplasty with a 2.0 x15 mm balllon and inflated to 14 atms with 2 inflations. then i used a _2.5 . x 12 mm balloon by [employer] medical IVL balloon up to __4 __ ATMS over __15__ seconds with __10 pulses each for total of 30 pulses__ number of inflations. Following this, I decided to place a stent using a 3.0 x30 mm onyx____ stent inflated up to __18___ ATMS over 15 seconds with two separate inflations. Following this, the stent balloon removed and angio performed showing 0% residual stenosis. ELIS pre/post: 3./3 CONCLUSIONS: 1. sp pci to 99% LAD acute CT and BRITT after IVL shockwave lithotripsy PLAN: Aggressive risk factor modification and medical management for the patient. DAPT x 1 year uninterrupted JESÚS CHILDERS MD Sep 26, 2025 15:25
[2025-09-26] MEDS: TICAGRELOR 90 MG TAB ONE (15:28)
[2025-09-26 20:43] LABS: INR 1.2 (0.9-1.15); Partial Thromboplastin Time 51.8 SEC (24.5-34.5); Prothrombin Time 12.5 sec (9.3-11.8)
[2025-09-27] VITALS (8 sets, daily range): BP systolic 100–139; BP diastolic 57–88; PULSE 70–101; RESP 16–18; TEMP 97.8–98.9; O2SAT 98–100
[2025-09-27 05:20] LABS: Hematocrit 36.8 % (41.0-53.0); Hemoglobin 12.3 g/dL (13.5-17.5); Mean Corpuscular Hemoglobin 30.0 pg (28.0-32.0); Mean Corpuscular Volume 89.7 fL (80.0-100.0); Nucleated Red Blood Cells % 0.0 %
[2025-09-27 05:22] LABS: Chloride 107 mmol/L (98-107); Potassium 4.7 mmol/L (3.5-5.1); Sodium 140 mmol/L (136-145)
[2025-09-27 05:23] LABS: Anion Gap 11 (5-15); Calcium 8.8 mg/dL (8.7-10.4); Carbon Dioxide 22 mmol/L (20-31)
[2025-09-27 05:28] LABS: BUN/Creatinine Ratio 17.6 (10.0-20.0); Glucose 93 mg/dL (74-106)
[2025-09-27 05:33] LABS: Blood Urea Nitrogen 32 mg/dL (9-23)
[2025-09-27] MEDS: CLOPIDOGREL BISULFATE 75 MG TAB PO SCH (08:58)
[2025-09-27] MEDS: NICOTINE 7MG/24HR TOPICAL PATCH TD SCH (08:59)
--- NOTE | 2025-09-27 10:10 | ECG ---
[facility] Test Date: 2025-09-26 Test Time: 11:06:35 Pat Name: DAHIANA GIANG Department: [facility] ED Patient ID: [facility]-[id number] Room: [facility]4T B Gender: M Tricot Knitter: KESHAWN : 1955 Requested By: HERNANDEZ OTERO Order Number: [id number] Reading MD: Salvador Davila Measurements Intervals [place] Rate: 70 P: 38 VT: 146 QRS: 69 QRSD: 81 T: 117 QT: 447 QTc: 483 Interpretive Statements Sinus rhythm Abnrm T, consider ischemia, anterolateral lds ST elevation, consider inferior injury Electronically Signed On 09-29-2025 19:21:55 PST by Salvador Davila Please click the below link to view image of tracing.
--- NOTE | 2025-09-27 11:38 | ECG ---
[facility] Test Date: 2025-09-25 Test Time: 23:06:55 Pat Name: DAHIANA GIANG Department: [facility] ED Patient ID: [facility]-[id number] Room: [facility]4T B Gender: M Outsole Paraffiner: alexander : 1955 Requested By: HERNANDEZ OTERO Order Number: [id number] Reading MD: Salvador Davila Measurements Intervals [place] Rate: 78 P: 50 NH: 163 QRS: 50 QRSD: 100 T: 102 QT: 420 QTc: 479 Interpretive Statements Sinus rhythm Probable LVH with secondary repol abnrm Anterior ST elevation, probably due to LVH Borderline prolonged QT interval Electronically Signed On 09-29-2025 19:17:09 PST by Salvador Davila Please click the below link to view image of tracing.
[2025-09-27] MEDS: GABAPENTIN 100 MG CAP PO ONE (11:44)
[2025-09-27] MEDS: ENOXAPARIN SOD 40 MG/0.4 ML SYRINGE SC SCH (11:45)
--- NOTE | 2025-09-27 14:46 | DVHINCON2 ---
Date of service: Sep 27, [address] Nicholson Reason for Consultation Acute kidney injury History of Present Illness Mr. Rojo is a 70-year-old Urdu [place] male who presented further evaluation and management of lower extremity pain and chest pain. Current consultation requested elevated serum creatinine noted upon admission. He has been diagnosed with an ST-elevation [place], he has been on systemic anticoagulation, he underwent left heart catheterization yesterday with PCI to LAD. He was seen in his room earlier this afternoon, lying completely supine and in no acute distress. Serum creatinine has improved slightly to the high one range. Allergies: Coded Allergies: NO KNOWN ALLERGIES (Unverified , 09/25/25) Home Meds No Active Prescriptions or Reported Meds Current Medications Current Medications Medications (Trade) Dose Ordered Sig/Angelique Route PRN Reason Start Time Stop Time Status Last Admin Nicotine (Nicoderm 7MG/ 24HR) 1 patch DAILY TD 09/27/25 10:00 Clopidogrel Bisulfate (Plavix) 75 mg DAILY PO 09/27/25 10:00 09/27/25 08:58 Enoxaparin Sodium (Lovenox) 40 mg DAILY SC 09/27/25 10:00 09/27/25 11:45 Gabapentin (Neurontin Capsule) 100 mg BID PO 09/27/25 22:00 Vancomycin HCl 100 ml @ 100 mls/hr DAILY@1700 IV 09/27/25 17:00 Family History: Cardiovascular disease G8 MOTHER G8 FATHER Hypertension G8 MOTHER G8 FATHER Review of Systems Denies gross hematuria, dysuria, tea or Coca-Cola colored urine Denies excessive use of recent NSAIDs, foamy urine, recent IV contrast studies Denies fever, chills, nausea, vomiting, diarrhea Denies unintentional weight loss, night sweats Denies focal weakness, numbness H&P Exam Vital Signs/I&O Vital Sign Date Time Temp Pulse Resp B/P (MAP) Pulse Ox O2 Delivery O2 Flow Rate FiO2 09/27/25 08:00 96 09/27/25 08:00 18 99 Room Air* 0 21 09/27/25 05:00 98.1 116/57 (76) 98.1 Intake and Output 09/26/25 09/27/25 19:00 07:00 Intake Total 100 ml 200 ml Output Total 700 ml 375 ml Balance -600 ml -175 ml Intake Oral 200 ml IV Total 100 ml Output Urine Total 700 ml 375 ml Physical Exam Gen: nad, supine appears stated age heent: nc/at, mmm lungs: cta anteriorly cvs: no rub abd: soft, bowel sounds audible ext: no edema skin: no rash neuro: Arousable Labs/Diagnostic Data Labs/Diagnostic Data Laboratory Tests Test 09/27/25 04:39 09/26/25 20:04 09/26/25 12:42 09/26/25 01:50 Range/Units White Blood Count 10.4 4.4-10.8 10^3/uL Red Blood Count 4.10 L 4.5-5.90 10^6/uL Hemoglobin 12.3 L 13.5-17.5 g/dL Hematocrit 36.8 L 41.0-53.0 % Mean Corpuscular Volume 89.7 80.0-100.0 fL Mean Corpuscular Hemoglobin 30.0 28.0-32.0 pg Mean Corpuscular Hemoglobin Concent 33.5 32.0-36.0 g/dL Red Cell Distribution Width 13.2 11.8-14.3 % Platelet Count 237 140-450 10^3/uL Mean Platelet Volume 7.1 6.9-10.8 fL Neutrophils (%) (Auto) 80.2 H 37.0-80.0 % Lymphocytes (%) (Auto) 9.9 L 10.0-50.0 % Monocytes (%) (Auto) 7.6 0.0-12.0 % Eosinophils (%) (Auto) 2.0 0.0-7.0 % Basophils (%) (Auto) 0.3 0.0-2.0 % Neutrophils # (Auto) 8.4 1.6-8.6 10 ^3/uL Lymphocytes # (Auto) 1.0 0.4-5.4 10 ^3/uL Monocytes # (Auto) 0.8 0-1.3 10 ^3/uL Eosinophils # (Auto) 0.2 0-0.8 10 ^3/uL Basophils # (Auto) 0 0-0.2 10 ^3/uL Nucleated Red Blood Cells 0.0 % Sodium Level 140 136-145 mmol/L Potassium Level 4.7 3.5-5.1 mmol/L Chloride Level 107 98-107 mmol/L Carbon Dioxide Level 22 20-31 mmol/L Anion Gap 11 5-15 Blood Urea Nitrogen 32 #H 9-23 mg/dL Creatinine 1.82 H 0.700-1.30 mg/dL Glomerular Filtration Rate Calc 40 >90 mL/min BUN/Creatinine Ratio 17.6 10.0-20.0 Serum Glucose 93 74-106 mg/dL Calcium Level 8.8 8.7-10.4 mg/dL Random Vancomycin Level 16.8 H 9.7 5-10 ug/mL Prothrombin Time 12.5 H 10.9 11.1 9.3-11.8 sec Prothrombin Time INR 1.20 H 1.03 1.05 0.9-1.15 Activated Partial Thromboplast Time 51.8 H 41.0 H 96.9 *H 24.5-34.5 SEC Troponin I High Sensitivity 1809 *H </=54 ng/L Test 09/26/25 01:40 09/26/25 00:23 09/26/25 00:14 09/25/25 18:35 Range/Units Influenza Type A Antigen Negative Negative Influenza Type B Antigen Negative Negative SARS-CoV-2 Antigen (Rapid) Negative NEGATIVE Urine Color Colorless Yellow Urine Clarity Clear Clear Urine pH 5.0 5.0-9.0 Urine Specific [place] 1.013 1.001-1.035 Urine Protein Negative Negative Urine Ketones Negative Negative Urine Blood Negative Negative /uL Urine Nitrite Negative Negative Urine Bilirubin Negative Negative Urine Urobilinogen Normal Negative mg/dL Urine Leukocyte Esterase Negative Negative /uL Urine RBC <1 0 - 3 /hpf Urine Microscopic WBC < 1 0-3 /HPF Urine Squamous Epithelial Cells None seen <5 /hpf Urine Bacteria None seen None Seen /hpf Urine Glucose Normal Normal mg/dL Urine Opiates Screen Neg NEGATIVE Urine Fentanyl Screen Neg NEGATIVE Urine Barbiturates Screen Neg NEGATIVE Urine Phencyclidine Screen Neg NEGATIVE Urine Amphetamines Screen Neg NEGATIVE Urine Benzodiazepines Screen Neg NEGATIVE Urine Cocaine Screen Neg NEGATIVE Urine Cannabinoids Screen Neg NEGATIVE White Blood Count 10.1 10.6 4.4-10.8 10^3/uL Red Blood Count 3.95 L 3.98 L 4.5-5.90 10^6/uL Hemoglobin 11.9 L 12.0 #L 13.5-17.5 g/dL Hematocrit 35.1 L 35.2 #L 41.0-53.0 % Mean Corpuscular Volume 88.8 88.6 80.0-100.0 fL Mean Corpuscular Hemoglobin 30.1 30.2 28.0-32.0 pg Mean Corpuscular Hemoglobin Concent 33.9 34.0 32.0-36.0 g/dL Red Cell Distribution Width 13.4 13.5 11.8-14.3 % Platelet Count 249 250 140-450 10^3/uL Mean Platelet Volume 7.3 7.1 6.9-10.8 fL Neutrophils (%) (Auto) 70.7 74.8 37.0-80.0 % Lymphocytes (%) (Auto) 19.9 16.0 10.0-50.0 % Monocytes (%) (Auto) 7.7 7.9 0.0-12.0 % Eosinophils (%) (Auto) 1.4 1.0 0.0-7.0 % Basophils (%) (Auto) 0.3 0.3 0.0-2.0 % Neutrophils # (Auto) 7.1 7.9 1.6-8.6 10 ^3/uL Lymphocytes # (Auto) 2.0 1.7 0.4-5.4 10 ^3/uL Monocytes # (Auto) 0.8 0.8 0-1.3 10 ^3/uL Eosinophils # (Auto) 0.1 0.1 0-0.8 10 ^3/uL Basophils # (Auto) 0 0 0-0.2 10 ^3/uL Nucleated Red Blood Cells 0.0 0.0 % Prothrombin Time 11.1 9.3-11.8 sec Prothrombin Time INR 1.05 0.9-1.15 Activated Partial Thromboplast Time 102.3 *H 24.5-34.5 SEC Sodium Level 142 136-145 mmol/L Potassium Level 4.4 3.5-5.1 mmol/L Chloride Level 109 H 98-107 mmol/L Carbon Dioxide Level 22 20-31 mmol/L Anion Gap 11 5-15 Blood Urea Nitrogen 42 #H 9-23 mg/dL Creatinine 1.91 H 0.700-1.30 mg/dL Glomerular Filtration Rate Calc 38 >90 mL/min BUN/Creatinine Ratio 22.0 H 10.0-20.0 Serum Glucose 96 74-106 mg/dL Hemoglobin A1c 5.9 H <5.7 % A1C Calcium Level 8.4 L 8.7-10.4 mg/dL Total Bilirubin 0.5 0.2-1.0 mg/dL Aspartate Amino Transferase (AST) 23 13-40 U/L Alanine Aminotransferase (ALT) 18 7-40 U/L Alkaline Phosphatase 100 46-116 U/L Total Protein 6.3 5.7-8.2 g/dL Albumin 3.7 3.2-4.8 g/dL Triglycerides Level 78 < 150 mg/dL Cholesterol Level 118 < 200 mg/dL LDL Cholesterol 70 < 100 mg/dL HDL Cholesterol 41 40-59 mg/dL Test 09/25/25 18:01 09/25/25 17:12 09/25/25 15:44 09/25/25 15:00 Range/Units Prothrombin Time 10.7 9.3-11.8 sec Prothrombin Time INR 1.01 0.9-1.15 Activated Partial Thromboplast Time 27.6 24.5-34.5 SEC Total Bilirubin 0.3 0.2-1.0 mg/dL Direct Bilirubin 0.1 <0.3 mg/dL Aspartate Amino Transferase (AST) 14 13-40 U/L Alanine Aminotransferase (ALT) 18 7-40 U/L Alkaline Phosphatase 105 46-116 U/L Troponin I High Sensitivity 1514 *H 1229 *H </=54 ng/L Total Protein 6.1 5.7-8.2 g/dL Albumin 3.7 3.2-4.8 g/dL Lactic Acid Level 1.8 0.4-2.0 mmol/L Vitamin B12 Level 531 211-911 pg/mL Test 09/25/25 14:52 Range/Units White Blood Count 12.0 H 4.4-10.8 10^3/uL Red Blood Count 4.87 4.5-5.90 10^6/uL Hemoglobin 14.6 13.5-17.5 g/dL Hematocrit 43.4 41.0-53.0 % Mean Corpuscular Volume 89.2 80.0-100.0 fL Mean Corpuscular Hemoglobin 30.0 28.0-32.0 pg Mean Corpuscular Hemoglobin Concent 33.6 32.0-36.0 g/dL Red Cell Distribution Width 13.8 11.8-14.3 % Platelet Count 319 140-450 10^3/uL Mean Platelet Volume 7.1 6.9-10.8 fL Neutrophils (%) (Auto) 81.0 H 37.0-80.0 % Lymphocytes (%) (Auto) 11.6 10.0-50.0 % Monocytes (%) (Auto) 6.8 0.0-12.0 % Eosinophils (%) (Auto) 0.3 0.0-7.0 % Basophils (%) (Auto) 0.3 0.0-2.0 % Neutrophils # (Auto) 9.7 H 1.6-8.6 10 ^3/uL Lymphocytes # (Auto) 1.4 0.4-5.4 10 ^3/uL Monocytes # (Auto) 0.8 0-1.3 10 ^3/uL Eosinophils # (Auto) 0 0-0.8 10 ^3/uL Basophils # (Auto) 0 0-0.2 10 ^3/uL Nucleated Red Blood Cells 0.1 % Prothrombin Time 10.3 9.3-11.8 sec Prothrombin Time INR 0.97 0.9-1.15 Activated Partial Thromboplast Time 27.8 24.5-34.5 SEC Sodium Level 141 136-145 mmol/L Potassium Level 4.8 3.5-5.1 mmol/L Chloride Level 106 98-107 mmol/L Carbon Dioxide Level 25 20-31 mmol/L Anion Gap 10 5-15 Blood Urea Nitrogen 56 H 9-23 mg/dL Creatinine 2.63 H 0.700-1.30 mg/dL Glomerular Filtration Rate Calc 26 >90 mL/min BUN/Creatinine Ratio 21.3 H 10.0-20.0 Serum Glucose 93 74-106 mg/dL Lactic Acid Level 3.5 *H 0.4-2.0 mmol/L Calcium Level 9.8 8.7-10.4 mg/dL Troponin I High Sensitivity 981 *H </=54 ng/L B-Type Natriuretic Peptide 45.30 0-100 pg/mL Vitamin D 25-Hydroxy 58.5 30.0-100 ng/mL Thyroid Stimulating Hormone (TSH) 0.56 0.55-4.78 uIU/mL Assessment IMP: 1) Hemodynamically mediated acute kidney injury 2) CKD stage III a - possibly secondary to ischemic nephropathy 3) NSTEMI - status post PCI to LAD REC: - judicious IV hydration as tolerated / even to slightly positive fluid balance - currently without signs or symptoms of significant contrast nephropathy - stable kidney function, we will continue to monitor - general recommendations to avoid NSAIDs, further intravenous contrast studies if able. - thank you for the consultation. Plan discussed with: Other SANDRA ROMAN MD Sep 27, 2025 14:46
[2025-09-27] MEDS: SOD CHL 0.45% 1,000 ML IV ONE (15:47)
[2025-09-27] MEDS: VANCOMYCIN 750MG KIT 100 ML IV SCH (16:37)
--- NOTE | 2025-09-27 18:08 | DVHPNRES ---
Progress Note Date Seen: Sep 27, 2025 Resident Creating Document: YVON SWAN Medical Necessity Reason Pt with a Central, PICC or Fol: No Subjective Review of Systems Patient seen at bedside. Status post left heart catheterization. No new complaints. Hermilo Rojo is a 70-year-old male with past medical history of dyslipidemia presented with complaints of left foot pain, erythema and swelling since 3 days. Patient says that the complaints has been ongoing for the past 2 years, but exacerbated in the past 3 days. He also complains of associated chest pain and shortness of breaths. He denies any fever, chills,cough or other symptoms. patient complains of extreme pain when walking. PMHx: Dyslipidemia PSHx: none Family history: nonrelevant Social history: 30 pack year smoking history, history of alcohol abuse( stopped 2 years back ) Home medication: losartan hydrochlorothiazide, atorvastatin, aspirin, amlodipine Allergic history: no known allergies General: patient denies fever, fatigue, weaknes, sweating, any recent changes in appetite and weight HEENT: No headaches, visiual changes, hearing loss, tinnitus, nasal congestion and discharge, and sore throat. Cardiovascular: complains of chest pain and shortness of bread Respiratory: No cough, and wheezing. Gastrointestinal: Denies nausea, vomiting, dysphagia, odynophagia, heartburn, abdominal pain, flatulence, bloating, diarrhea, constipation, change in stool, or blood in stool. Genitourinary: No dysuria, hematuria, discharge, frequency, urgency, nocturia, incontinence, and urinary retention. Endocrine: No heat or cold intolerance, polydipsia, polyuria, and polyphagia. Neurological: No dizziness, extremity weakness and numbness, tremors, gait disturbance, seizures, and memory impairment. Psychiatric: Denies depression, anxiety,or insomnia. Musculoskeletal: complains of pain and swelling in the left foot Skin: No rashes, itching, skin lesion, changes in hair, nail, skin texture and breast. Hematologic/Lymphatic: Denies easy bruising, bleeding tendencies, or lymph node enlargement. Objective vital signs Vital Sign Date Time Temp Pulse Resp B/P (MAP) Pulse Ox O2 Delivery O2 Flow Rate FiO2 09/27/25 13:00 97.8 101 18 127/71 (89) 98 97.8 09/27/25 08:00 Room Air* 0 21 Total Intake and Output 09/26/25 09/26/25 09/27/25 15:00 23:00 07:00 Intake Total 100 ml 200 ml Output Total 700 ml 375 ml Balance -700 ml 100 ml -175 ml medications Current Medications Medications Dose Ordered Sig/Angelique Route Start Time Stop Time Status Last Admin Dose Admin Heparin Sodium/ Dextrose 250 ml @ 12.24 mls/ hr [id number] IV 09/25/25 17:45 UNV Atorvastatin Calcium 40 mg HS PO 09/25/25 21:30 09/26/25 21:46 40 MG Acetaminophen/ Hydrocodone Bitart 1 tab Q6HPRN PRN PO 09/25/25 22:15 Cefepime HCl 50 ml @ 12.5 mls/hr DAILY IV 09/26/25 10:00 09/27/25 08:58 12.5 MLS/HR Pantoprazole Sodium 40 mg DAILY@0600 PO 09/26/25 06:00 09/27/25 05:21 40 MG Vancomycin HCl 0 ml @ 0 mls/hr PER PHARMACY IV 09/26/25 09:30 Aspirin 81 mg DAILY PO 09/26/25 10:00 09/27/25 08:59 81 MG Nicotine 1 patch DAILY TD 09/27/25 10:00 Clopidogrel Bisulfate 75 mg DAILY PO 09/27/25 10:00 09/27/25 08:58 75 MG Enoxaparin Sodium 40 mg DAILY SC 09/27/25 10:00 09/27/25 11:45 40 MG Gabapentin 100 mg BID PO 09/27/25 22:00 Vancomycin HCl 100 ml @ 100 mls/hr DAILY@1700 IV 09/27/25 17:00 09/27/25 16:37 100 MLS/HR Examination General Appearance: Alert, Oriented X3, Cooperative, No acute distress HEENT: Atraumatic, PERRLA, EOMI, Mucous membrane moist/pink Respiratory: Clear to auscultation, Normal air movement Cardiovascular: Regular rate, Normal S1, Normal S2, No murmurs, no chest wall tenderness Abdominal: Normal bowel sounds, Soft, No tenderness, No hepatospenomegaly, No masses Extremities: swelling, erythema and tenderness in the left foot. 1X1cm ulcer in the left foot, present on admission Skin: No rashes, No breakdown, No significant lesion Neuro: Normal gait, Normal speech, Strength at 5/5 X4 ext, Normal tone, Sensation intact, Cranial nerves 3-12 NL, Reflexes 2+ Psych/Mental Status: Mental status NL, Mood NL laboratory and microbiology Laboratory Tests 09/27/25 04:39 Test 09/27/25 04:39 Range/Units Serum Glucose 93 74-106 mg/dL Microbiology Date/Time Source Procedure Growth Status 09/25/25 15:00 Blood Blood Culture - Preliminary NO GROWTH AFTER 48 HOURS OF INCUBATION. Resulted Problem List/Assessment/Plan Problem List/Assessment/Plan Assessment/Plan severe sepsis due to below Left foot cellulitis peripheral arterial disease DVT ruled out Ischaemic ulcer left foot Lactic acid downtrending Leukocytosis, downtrending Left lower extremity venous ultrasound: DVT ruled out IV cefepime and IV vancomycin (renal dose adjustment done) duplex arterial ultrasound: 50-80% stenosis in the left common femoral artery. vascular surgery consult follow cultures wound consult Status post left heart catheterization with stenting NSTEMI type 1 Status post left heart catheterization with stenting ELIS score 3 HEART score 8 TAWNY score 121 EKG: T-wave inversion, ischemic changes Troponin trending up Heparin drip given Atorvastatin 40 mg Cardiology consultation done SHIMON on CKD likely due to VMN IV fluid Monitor labs dyslipidemia Continue home medications Follow lipid panel Pre diabetes, newly diagnosed Follow up blood glucose levels Target in-hospital blood glucose below 180 GI prophylaxis: Pantoprazole DVT prophylaxis: On heparin drip Diet: Cardiac Goals of care discussed Full code status Case discussed with Dr. Kenney Plan discussed with: Patient My Orders My Orders Orders - YVON SWAN Procedure Category Date Status Time Vancomycin 750mg Kit PHA 09/27/25 In Process (Vancomycin Hcl) 17:00 Vancomycin,Trough LAB 09/28/25 Verified 17:00 Vancomycin Per REJI 09/28/25 In Process Pharmacy Protoc 18:00 Cleanse Wound With REJI 09/27/25 In Process Wound Clean 12:00 * Dietary Consult CONS 09/27/25 Transmitted 17:59 Wound Culture W/ Gs CONNIE 09/27/25 Logged 18:01 Date of Service: Sep 27, 2025 Billing Provider: JUNG SCHNEIDER MD Common Visit Codes: [id number] INP/OBS CARE(HIGH) YVON SWAN RESIDENT Sep 27, 2025 18:08
[2025-09-27] MEDS: GABAPENTIN 100 MG CAP PO SCH (21:26)
[2025-09-28] VITALS (8 sets, daily range): BP systolic 105–140; BP diastolic 55–84; PULSE 72–95; RESP 16–18; TEMP 97.8–98.4; O2SAT 95–99
[2025-09-28 06:06] LABS: Hematocrit 35.3 % (41.0-53.0); Hemoglobin 12.1 g/dL (13.5-17.5); Mean Corpuscular Hemoglobin 30.1 pg (28.0-32.0); Mean Corpuscular Volume 87.7 fL (80.0-100.0); Nucleated Red Blood Cells % 0.0 %
[2025-09-28 06:24] LABS: Alanine Aminotransferase 20 U/L (7-40); Albumin 3.8 g/dL (3.2-4.8); Alkaline Phosphatase 99 U/L (46-116); Anion Gap 10 (5-15); BUN/Creatinine Ratio 16.6 (10.0-20.0); Calcium 8.7 mg/dL (8.7-10.4); Carbon Dioxide 23 mmol/L (20-31); Chloride 105 mmol/L (98-107); Glucose 95 mg/dL (74-106); Potassium 4.5 mmol/L (3.5-5.1); Sodium 138 mmol/L (136-145); Total Protein 6.4 g/dL (5.7-8.2)
[2025-09-28 06:25] LABS: Bilirubin, Total 0.5 mg/dL (0.2-1.0)
[2025-09-28 06:29] LABS: Blood Urea Nitrogen 31 mg/dL (9-23)
[2025-09-28] MEDS: HYDROcodone-ACET 5/325MG TAB PO PRN (07:01)
--- NOTE | 2025-09-28 16:26 | DVHPNRES ---
Progress Note Date Seen: Sep 28, 2025 Resident Creating Document: YVON SWAN Medical Necessity Reason Pt with a Central, PICC or Fol: No Subjective Review of Systems Patient seen at bedside. Status post left heart catheterization. Complains Of foot pain. on antibiotics. Cardiology recommending outpatient follow up. Hermilo Rojo is a 70-year-old male with past medical history of dyslipidemia presented with complaints of left foot pain, erythema and swelling since 3 days. Patient says that the complaints has been ongoing for the past 2 years, but exacerbated in the past 3 days. He also complains of associated chest pain and shortness of breaths. He denies any fever, chills,cough or other symptoms. patient complains of extreme pain when walking. PMHx: Dyslipidemia PSHx: none Family history: nonrelevant Social history: 30 pack year smoking history, history of alcohol abuse( stopped 2 years back ) Home medication: losartan hydrochlorothiazide, atorvastatin, aspirin, amlodipine Allergic history: no known allergies General: patient denies fever, fatigue, weaknes, sweating, any recent changes in appetite and weight HEENT: No headaches, visiual changes, hearing loss, tinnitus, nasal congestion and discharge, and sore throat. Cardiovascular: complains of chest pain and shortness of bread Respiratory: No cough, and wheezing. Gastrointestinal: Denies nausea, vomiting, dysphagia, odynophagia, heartburn, abdominal pain, flatulence, bloating, diarrhea, constipation, change in stool, or blood in stool. Genitourinary: No dysuria, hematuria, discharge, frequency, urgency, nocturia, incontinence, and urinary retention. Endocrine: No heat or cold intolerance, polydipsia, polyuria, and polyphagia. Neurological: No dizziness, extremity weakness and numbness, tremors, gait disturbance, seizures, and memory impairment. Psychiatric: Denies depression, anxiety,or insomnia. Musculoskeletal: complains of pain and swelling in the left foot Skin: No rashes, itching, skin lesion, changes in hair, nail, skin texture and breast. Hematologic/Lymphatic: Denies easy bruising, bleeding tendencies, or lymph node enlargement. Objective vital signs Vital Sign Date Time Temp Pulse Resp B/P (MAP) Pulse Ox O2 Delivery O2 Flow Rate FiO2 09/28/25 13:00 98.4 82 16 109/70 (83) 97 98.4 1210/25 08:00 Room Air* 0 21 Total Intake and Output 09/27/25 09/27/25 09/28/25 15:00 23:00 07:00 Intake Total 50 ml 800 ml 1050 ml Output Total 1600 ml 300 ml Balance 50 ml -800 ml 750 ml medications Current Medications Medications Dose Ordered Sig/Angelique Route Start Time Stop Time Status Last Admin Dose Admin Heparin Sodium/ Dextrose 250 ml @ 12.24 mls/ hr [id number] IV 09/25/25 17:45 UNV Atorvastatin Calcium 40 mg HS PO 09/25/25 21:30 09/27/25 21:26 40 MG Acetaminophen/ Hydrocodone Bitart 1 tab Q6HPRN PRN PO 09/25/25 22:15 09/28/25 07:01 1 TAB Cefepime HCl 50 ml @ 12.5 mls/hr DAILY IV 09/26/25 10:00 09/28/25 10:15 12.5 MLS/HR Pantoprazole Sodium 40 mg DAILY@0600 PO 09/26/25 06:00 09/28/25 06:57 40 MG Vancomycin HCl 0 ml @ 0 mls/hr PER PHARMACY IV 09/26/25 09:30 Aspirin 81 mg DAILY PO 09/26/25 10:00 09/28/25 10:14 81 MG Nicotine 1 patch DAILY TD 09/27/25 10:00 Clopidogrel Bisulfate 75 mg DAILY PO 09/27/25 10:00 09/28/25 10:13 75 MG Enoxaparin Sodium 40 mg DAILY SC 09/27/25 10:00 09/27/25 11:45 40 MG Gabapentin 100 mg BID PO 09/27/25 22:00 09/28/25 10:13 100 MG Vancomycin HCl 100 ml @ 100 mls/hr DAILY@1700 IV 09/27/25 17:00 09/27/25 16:37 100 MLS/HR Examination General Appearance: Alert, Oriented X3, Cooperative, No acute distress HEENT: Atraumatic, PERRLA, EOMI, Mucous membrane moist/pink Respiratory: Clear to auscultation, Normal air movement Cardiovascular: Regular rate, Normal S1, Normal S2, No murmurs, no chest wall tenderness Abdominal: Normal bowel sounds, Soft, No tenderness, No hepatospenomegaly, No masses Extremities: swelling, erythema and tenderness in the left foot. 1X1cm ulcer in the left foot, present on admission Skin: No rashes, No breakdown, No significant lesion Neuro: Normal gait, Normal speech, Strength at 5/5 X4 ext, Normal tone, Sensation intact, Cranial nerves 3-12 NL, Reflexes 2+ Psych/Mental Status: Mental status NL, Mood NL laboratory and microbiology Laboratory Tests 09/28/25 05:17 Test 09/28/25 05:17 Range/Units Serum Glucose 95 74-106 mg/dL Microbiology Date/Time Source Procedure Growth Status 09/27/25 18:28 Toe Left (Second) Gram Stain - Final Resulted 09/27/25 18:28 Toe Left (Second) Wound Culture - Preliminary Resulted 09/25/25 15:00 Blood Blood Culture - Preliminary NO GROWTH AFTER 72 HOURS OF INCUBATION. Resulted Problem List/Assessment/Plan Problem List/Assessment/Plan Assessment/Plan severe sepsis due to below Left foot cellulitis peripheral arterial disease DVT ruled out Ischaemic ulcer left foot Lactic acid downtrending Leukocytosis, downtrending Left lower extremity venous ultrasound: DVT ruled out IV cefepime and IV vancomycin (renal dose adjustment done) duplex arterial ultrasound: 50-80% stenosis in the left common femoral artery. vascular surgery consult follow cultures wound consult Status post left heart catheterization with stenting NSTEMI type 1 Status post left heart catheterization with stenting ELIS score 3 HEART score 8 TAWNY score 121 EKG: T-wave inversion, ischemic changes Troponin trending up Heparin drip given Atorvastatin 40 mg Cardiology consultation done SHIMON on CKD likely due to VMN IV fluid Monitor labs dyslipidemia Continue home medications Follow lipid panel Pre diabetes, newly diagnosed Follow up blood glucose levels Target in-hospital blood glucose below 180 GI prophylaxis: Pantoprazole DVT prophylaxis: On heparin drip Diet: Cardiac Goals of care discussed Full code status Case discussed with Dr. Kenney Plan discussed with: Patient My Orders My Orders Orders - YVON SWAN RESIDENT Procedure Category Date Status Time Cleanse Wound With REJI 09/27/25 In Process Wound Clean 12:00 * Dietary Consult CONS 09/27/25 Transmitted 17:59 Wound Culture W/ Gs CONNIE 09/27/25 In Process 18:01 Consult Care CONS 09/28/25 Transmitted Coordinator Dietary Evaluation Review Comments: CCHO-60 cardiac Diet Tight glucose control to enhance wound healing. Order [place] bid for healing if PCP/cash shortage investigator approves check Lipid prfile, d/c lipitor if LDL<50 Expected Outcomes/Goals: Controlled DM, promte wound healing and gradual weight gain Date of Service: Sep 28, 2025 Billing Provider: JUNG SCHNEIDER MD Common Visit Codes: [id number] INP/OBS CARE(HIGH) YVON SWAN RESIDENT Sep 28, 2025 16:26
[2025-09-28] MEDS: VANCOMYCIN 750MG KIT 100 ML IV SCH (18:00)
[2025-09-28] MEDS ORDERED: VANCOMYCIN 750MG KIT 100 ML IV SCH (18:00)
[2025-09-28] MEDS: VANCOMYCIN 750MG KIT 100 ML IV ONE (18:05)
--- NOTE | 2025-09-28 19:29 | DVHPN2 ---
Progress Note - Dictate Date Seen: Sep 28, 2025 Medical Necessity Reason Pt with a Central, PICC or Fol: No Subjective Patient seen earlier this afternoon, patient resting comfortably, somnolent but arousable vital signs Vital Sign Date Time Temp Pulse Resp B/P (MAP) Pulse Ox O2 Delivery O2 Flow Rate FiO2 09/28/25 16:58 97.9 81 18 140/56 (84) 96 97.9 09/28/25 08:00 Room Air* 0 21 Total Intake and Output 09/27/25 09/27/25 09/28/25 15:00 23:00 07:00 Intake Total 50 ml 800 ml 1050 ml Output Total 1600 ml 300 ml Balance 50 ml -800 ml 750 ml medications Current Medications Medications Dose Ordered Sig/Angelique Route Start Time Stop Time Status Last Admin Dose Admin Heparin Sodium/ Dextrose 250 ml @ 12.24 mls/ hr [id number] IV 09/25/25 17:45 UNV Atorvastatin Calcium 40 mg HS PO 09/25/25 21:30 09/27/25 21:26 40 MG Acetaminophen/ Hydrocodone Bitart 1 tab Q6HPRN PRN PO 09/25/25 22:15 09/28/25 17:27 1 TAB Pantoprazole Sodium 40 mg DAILY@0600 PO 09/26/25 06:00 09/28/25 06:57 40 MG Vancomycin HCl 0 ml @ 0 mls/hr PER PHARMACY IV 09/26/25 09:30 Aspirin 81 mg DAILY PO 09/26/25 10:00 09/28/25 10:14 81 MG Nicotine 1 patch DAILY TD 09/27/25 10:00 Clopidogrel Bisulfate 75 mg DAILY PO 09/27/25 10:00 09/28/25 10:13 75 MG Enoxaparin Sodium 40 mg DAILY SC 09/27/25 10:00 09/27/25 11:45 40 MG Gabapentin 100 mg BID PO 09/27/25 22:00 09/28/25 10:13 100 MG Duloxetine HCl 30 mg DAILY PO 09/28/25 17:45 09/28/25 18:08 30 MG Doxycycline Monohydrate 100 mg Q12HR PO 09/28/25 22:00 Ceftriaxone Sodium 50 ml @ 100 mls/hr DAILY@09 IV 09/28/25 17:45 Vancomycin HCl 100 ml @ 100 mls/hr DAILY@1800 IV 09/28/25 18:00 objective Gen: nad heent: nc/at, mmm lungs: cta anteriorly cvs: no rub abd: soft, bowel sounds audible ext: no edema skin: no rash neuro: alert and oriented laboratory and microbiology Laboratory Tests 09/28/25 05:17 Test 09/28/25 05:17 Range/Units Serum Glucose 95 74-106 mg/dL Assessment/Plan IMP: 1) Hemodynamically mediated acute kidney injury 2) CKD stage III a - possibly secondary to ischemic nephropathy 3) NSTEMI - status post PCI to LAD REC: - clinically stable from Nephrology perspective - we will follow up in outpatient CKD Clinic if discharged. - may consider challenge with RAAS inhibition as outpt if indicated Dietary Evaluation Review Comments: CCHO-60 cardiac Diet Tight glucose control to enhance wound healing. Order [place] bid for healing if PCP/court messenger approves check Lipid prfile, d/c lipitor if LDL<50 Expected Outcomes/Goals: Controlled DM, promte wound healing and gradual weight gain Plan discussed with: Other SANDRA ROMAN MD Sep 28, 2025 19:29
[2025-09-28] MEDS: DOXYCYCLINE 100 MG TAB/CAP PO SCH (21:38)
[2025-09-29] VITALS (9 sets, daily range): BP systolic 95–150; BP diastolic 46–78; PULSE 72–100; RESP 15–18; TEMP 97.8–98.8; O2SAT 94–97
[2025-09-29 06:16] LABS: Hematocrit 34.3 % (41.0-53.0); Hemoglobin 11.7 g/dL (13.5-17.5); Mean Corpuscular Hemoglobin 30.4 pg (28.0-32.0); Mean Corpuscular Volume 88.7 fL (80.0-100.0); Nucleated Red Blood Cells % 0.1 %
[2025-09-29 06:28] LABS: Alanine Aminotransferase 33 U/L (7-40); Alkaline Phosphatase 98 U/L (46-116); Anion Gap 10 (5-15); BUN/Creatinine Ratio 18.0 (10.0-20.0); Carbon Dioxide 22 mmol/L (20-31); Chloride 105 mmol/L (98-107); Glucose 92 mg/dL (74-106); Potassium 4.6 mmol/L (3.5-5.1); Sodium 137 mmol/L (136-145); Total Protein 6.2 g/dL (5.7-8.2)
[2025-09-29 06:29] LABS: Albumin 3.7 g/dL (3.2-4.8)
[2025-09-29 06:32] LABS: Blood Urea Nitrogen 32 mg/dL (9-23); Calcium 8.4 mg/dL (8.7-10.4)
[2025-09-29 06:50] LABS: Bilirubin, Total 0.3 mg/dL (0.2-1.0)
--- NOTE | 2025-09-29 13:24 | DVH ---
CLINICAL INDICATION: r/o infection. TECHNIQUE: Noncontrast CT of the left foot was performed. Sagittal and coronal reformatted images are provided. COMPARISON: None CT Dose: CTDI volume is 7.75 mGy. Dose-length product is 211.53 mGy*cm FINDINGS: No fracture or dislocation. Os peroneum noted, normal anatomical variant. No evidence of cortical destruction or erosion. No periosteal reaction. There is soft tissue swelling along the plantar surface of the forefoot deep to the 2nd toe. No obvious fluid collection. IMPRESSION: 1. No CT evidence of osteomyelitis. MRI of the forefoot is recommended for further evaluation to exclude infection. 2. Soft tissue swelling in the plantar surface of the 2nd toe. All CT scans at this medical facility are performed using dose modulation techniques as appropriate to a performed exam including the following: Automated exposure control was utilized; adjustment of the MA and/or KV according to patient size; and use of iterative reconstruction technique.
[2025-09-29] MEDS ORDERED: GABA-1308 PO (13:47)
[2025-09-29] MEDS ORDERED: CLOP75TA70 PO (13:47)
[2025-09-29] MEDS ORDERED: DULO20CA PO (13:47)
[2025-09-29] MEDS ORDERED: ROSU20TA56 PO (13:47)
[2025-09-29] MEDS ORDERED: METO25TA93 PO (13:47)
[2025-09-29] MEDS ORDERED: DOXY1CAP58 PO (13:47)
[2025-09-29] MEDS ORDERED: ASPI-325 PO (13:47)
--- NOTE | 2025-09-29 16:33 | DVHDSRES ---
Discharge Summary Date of Admission Resident Creating Document: YVON SWAN RESIDENT Sep 25, 2025 at 20:55 Date of Discharge: Sep 29, 2025 Labs/Diagnostic Data: Laboratory Results Test 09/29/25 05:05 09/28/25 16:58 09/27/25 04:39 09/26/25 20:04 White Blood Count 9.0 10^3/uL (4.4-10.8) Red Blood Count 3.86 10^6/uL (4.5-5.90) Hemoglobin 11.7 g/dL (13.5-17.5) Hematocrit 34.3 % (41.0-53.0) Mean Corpuscular Volume 88.7 fL (80.0-100.0) Mean Corpuscular Hemoglobin 30.4 pg (28.0-32.0) Mean Corpuscular Hemoglobin Concent 34.3 g/dL (32.0-36.0) Red Cell Distribution Width 13.5 % (11.8-14.3) Platelet Count 229 10^3/uL (140-450) Mean Platelet Volume 7.6 fL (6.9-10.8) Neutrophils (%) (Auto) 69.7 % (37.0-80.0) Lymphocytes (%) (Auto) 17.1 % (10.0-50.0) Monocytes (%) (Auto) 9.4 % (0.0-12.0) Eosinophils (%) (Auto) 3.6 % (0.0-7.0) Basophils (%) (Auto) 0.2 % (0.0-2.0) Neutrophils # (Auto) 6.3 10 ^3/uL (1.6-8.6) Lymphocytes # (Auto) 1.5 10 ^3/uL (0.4-5.4) Monocytes # (Auto) 0.8 10 ^3/uL (0-1.3) Eosinophils # (Auto) 0.3 10 ^3/uL (0-0.8) Basophils # (Auto) 0 10 ^3/uL (0-0.2) Nucleated Red Blood Cells 0.1 % Sodium Level 137 mmol/L (136-145) Potassium Level 4.6 mmol/L (3.5-5.1) Chloride Level 105 mmol/L (98-107) Carbon Dioxide Level 22 mmol/L (20-31) Anion Gap 10 (5-15) Blood Urea Nitrogen 32 mg/dL (9-23) Creatinine 1.78 mg/dL (0.700-1.30) Glomerular Filtration Rate Calc 41 mL/min (>90) BUN/Creatinine Ratio 18.0 (10.0-20.0) Serum Glucose 92 mg/dL (74-106) Calcium Level 8.4 mg/dL (8.7-10.4) Total Bilirubin 0.3 mg/dL (0.2-1.0) Aspartate Amino Transferase (AST) 25 U/L (13-40) Alanine Aminotransferase (ALT) 33 U/L (7-40) Alkaline Phosphatase 98 U/L (46-116) Total Protein 6.2 g/dL (5.7-8.2) Albumin 3.7 g/dL (3.2-4.8) Vancomycin Level Trough 13.8 ug/mL (5-10) Random Vancomycin Level 16.8 ug/mL (5-10) Prothrombin Time 12.5 sec (9.3-11.8) Prothrombin Time INR 1.20 (0.9-1.15) Activated Partial Thromboplast Time 51.8 SEC (24.5-34.5) Test 09/26/25 12:42 09/26/25 01:40 09/26/25 00:23 09/26/25 00:14 Troponin I High Sensitivity 1809 ng/L (</=54) Influenza Type A Antigen Negative (Negative) Influenza Type B Antigen Negative (Negative) SARS-CoV-2 Antigen (Rapid) Negative (NEGATIVE) Urine Color Colorless (Yellow) Urine Clarity Clear (Clear) Urine pH 5.0 (5.0-9.0) Urine Specific [place] 1.013 (1.001-1.035) Urine Protein Negative (Negative) Urine Ketones Negative (Negative) Urine Blood Negative /uL (Negative) Urine Nitrite Negative (Negative) Urine Bilirubin Negative (Negative) Urine Urobilinogen Normal mg/dL (Negative) Urine Leukocyte Esterase Negative /uL (Negative) Urine RBC <1 /hpf (0 - 3) Urine Microscopic WBC < 1 /HPF (0-3) Urine Squamous Epithelial Cells None seen /hpf (<5) Urine Bacteria None seen /hpf (None Seen) Urine Glucose Normal mg/dL (Normal) Urine Opiates Screen Neg (NEGATIVE) Urine Fentanyl Screen Neg (NEGATIVE) Urine Barbiturates Screen Neg (NEGATIVE) Urine Phencyclidine Screen Neg (NEGATIVE) Urine Amphetamines Screen Neg (NEGATIVE) Urine Benzodiazepines Screen Neg (NEGATIVE) Urine Cocaine Screen Neg (NEGATIVE) Urine Cannabinoids Screen Neg (NEGATIVE) Hemoglobin A1c 5.9 % A1C (<5.7) Triglycerides Level 78 mg/dL (< 150) Cholesterol Level 118 mg/dL (< 200) LDL Cholesterol 70 mg/dL (< 100) HDL Cholesterol 41 mg/dL (40-59) Test 09/25/25 18:01 09/25/25 17:12 09/25/25 15:00 09/25/25 14:52 Direct Bilirubin 0.1 mg/dL (<0.3) Lactic Acid Level 1.8 mmol/L (0.4-2.0) Vitamin B12 Level 531 pg/mL (211-911) B-Type Natriuretic Peptide 45.30 pg/mL (0-100) Vitamin D 25-Hydroxy 58.5 ng/mL (30.0-100) Thyroid Stimulating Hormone (TSH) 0.56 uIU/mL (0.55-4.78) Other Laboratory Tests 09/29/25 05:05 Brief Hx & Hospital Course: Hermilo Rojo is a 70-year-old male with past medical history of dyslipidemia presented with complaints of left foot pain, erythema and swelling since 3 days. Patient says that the complaints has been ongoing for the past 2 years, but exacerbated in the past 3 days. He also complains of associated chest pain and shortness of breaths. He denies any fever, chills,cough or other symptoms. patient complains of extreme pain when walking. labs revealed leukocytosis, elevated creatinine and lactic acid levels. Troponin was elevated in the 1000's up trending. Duplex ultrasound of femoral artery revealed 50-80% stenosis in the common femoral artery. Cardiology was consulted. Left heart catheterization revealed 99% stenosis of the LAD, 1 stent placed in the LAD. patient was treated with IV antibiotics, pain killers, nicotine patch. during the course of the hospitalization, the patient improved clinically and is hence being discharged. Discharge plan Follow up with PCP in 7 days Follow up with Cardiology in 7 days Follow up with Podiatry in 7 days Continue home medications New medications: Cymbalta, doxycycline, aspirin, Plavix Condition at Discharge: Fair Final Diagnosis/Problems List NSTEMI type 1 Status post PCI to LAD NSTEMI type 1 Severe sepsis due to below Left foot cellulitis Hemodynamically mediated acute kidney injury CKD stage III a - possibly secondary to ischemic nephropathy peripheral arterial disease DVT ruled out Ischaemic ulcer left foot dyslipidemia Pre diabetes, newly diagnosed Discharge Disposition: Home Discharge Instruct/Medications Diet: Cardiac 2g Na,low cholest Activity: No Restrictions, As Tolerated Follow Up/Referral: Follow up with PCP in 7 days Follow up with Cardiology in 7 days Follow up with Podiatry as outpatient Follow up with discharge Clinic on Friday Medications: As per EHR Scheduled Aspirin (Aspirin Low Dose), 81 MG PO DAILY Clopidogrel Bisulfate (Clopidogrel), 1 TAB PO DAILY Doxycycline (Monohydrate) (Doxycycline), 100 MG PO BID Duloxetine Hcl (Cymbalta), 1 CAP PO DAILY Gabapentin (Gabapentin), 1 CAP PO BID Rosuvastatin Calcium (Rosuvastatin Calcium), 20 MG PO DAILY Discharge Statement: "Patient was advised to return to the ER or call 911 if any headaches, dizziness, shortness of breath, chest pain, abdominal pain, bleeding, fevers, or worsening of medical condition. Patient was counseled about treatment plan, medications, possible side effects, patientverbalized understanding. All questions were answered to the best of my ability. This discharge took greater then 30 minutes in planning, reviewing documentation, counseling the patient, and discussing with other team members." ASSESSMENT ASSESSMENT Assessment Severe sepsis due to left foot cellulitis NSTEMI type 1 Visit Coding STANDARD RES Billing Provider: JUNG SCHNEIDER MD Date of Service if different f: Sep 29, 2025 Common Visit Codes: 90308-ASJ/OBS DISCH DAY >30min YVON SWAN RESIDENT Sep 29, 2025 16:33 JUNG SCHNEIDER MD Sep 30, 2025 10:12
--- NOTE | 2025-09-29 16:45 | DVHPN2 ---
Progress Note - Dictate Date Seen: Sep 29, 2025 Medical Necessity Reason Pt with a Central, PICC or Fol: No Subjective Patient denied feeling short of breath, seen earlier today. vital signs Vital Sign Date Time Temp Pulse Resp B/P (MAP) Pulse Ox O2 Delivery O2 Flow Rate FiO2 09/29/25 13:00 98.5 72 17 108/72 (84) 96 98.5 09/29/25 08:10 Room Air* 0 21 Total Intake and Output 09/28/25 09/28/25 09/29/25 14:59 22:59 06:59 Intake Total 50 ml 1350 ml 630 ml Output Total 600 ml 340 ml Balance 50 ml 750 ml 290 ml medications Current Medications Medications Dose Ordered Sig/Angelique Route Start Time Stop Time Status Last Admin Dose Admin Heparin Sodium/ Dextrose 250 ml @ 12.24 mls/ hr [id number] IV 09/25/25 17:45 UNV Atorvastatin Calcium 40 mg HS PO 09/25/25 21:30 09/28/25 21:38 40 MG Acetaminophen/ Hydrocodone Bitart 1 tab Q6HPRN PRN PO 09/25/25 22:15 09/29/25 06:55 1 TAB Pantoprazole Sodium 40 mg DAILY@0600 PO 09/26/25 06:00 09/29/25 05:53 40 MG Vancomycin HCl 0 ml @ 0 mls/hr PER PHARMACY IV 09/26/25 09:30 Aspirin 81 mg DAILY PO 09/26/25 10:00 09/29/25 09:56 81 MG Nicotine 1 patch DAILY TD 09/27/25 10:00 Clopidogrel Bisulfate 75 mg DAILY PO 09/27/25 10:00 09/29/25 09:56 75 MG Enoxaparin Sodium 40 mg DAILY SC 09/27/25 10:00 09/27/25 11:45 40 MG Gabapentin 100 mg BID PO 09/27/25 22:00 09/29/25 09:56 100 MG Duloxetine HCl 30 mg DAILY PO 09/28/25 17:45 09/29/25 09:56 30 MG Doxycycline Monohydrate 100 mg Q12HR PO 09/28/25 22:00 09/29/25 09:56 100 MG Ceftriaxone Sodium 50 ml @ 100 mls/hr DAILY@09 IV 09/28/25 17:45 09/29/25 09:55 100 MLS/HR Vancomycin HCl 100 ml @ 100 mls/hr DAILY@1800 IV 09/28/25 18:00 Metoprolol Succinate 25 mg DAILY PO 09/30/25 10:00 objective Gen: nad heent: nc/at, mmm lungs: cta anteriorly cvs: no rub abd: soft, bowel sounds audible ext: no edema skin: no rash neuro: alert and oriented laboratory and microbiology Laboratory Tests 09/29/25 05:05 Test 09/29/25 05:05 Range/Units Serum Glucose 92 74-106 mg/dL Assessment/Plan IMP: 1) Hemodynamically mediated acute kidney injury 2) CKD stage III a - possibly secondary to ischemic nephropathy 3) NSTEMI - status post PCI to LAD REC: - noted plans for discharge, clinically stable from Nephrology perspective. - we will follow up as outpatient. Dietary Evaluation Review Comments: CCHO-60 cardiac Diet Tight glucose control to enhance wound healing. Order [place] bid for healing if PCP/loan workout officer approves check Lipid prfile, d/c lipitor if LDL<50 Expected Outcomes/Goals: Controlled DM, promte wound healing and gradual weight gain Plan discussed with: Other SANDRA ROMAN MD Sep 29, 2025 16:45
[2025-09-29] MEDS ORDERED: VANCOMYCIN 750MG KIT 100 ML IV SCH (17:00)
[2025-09-30 01:00] VITALS: BP 128/77; PULSE 84; RESP 15; TEMP 98.1; O2SAT 96
[2025-09-30 05:00] VITALS: BP 115/74; PULSE 90; RESP 16; TEMP 98.3; O2SAT 94
[2025-09-30 08:00] VITALS: PULSE 80; PULSE 83; RESP 17; O2SAT 95
[2025-09-30 09:00] VITALS: BP 135/81; PULSE 89; RESP 17; TEMP 98.1; O2SAT 99
[2025-09-30] MEDS: METOPROLOL SUCCINATE XL 50 MG TAB PO SCH (09:13)
[2025-09-30 11:39] VITALS: BP 129/68; PULSE 84; RESP 17; TEMP 36.7; O2SAT 95
[2025-09-30 13:04] VITALS: BP 131/79; PULSE 109; RESP 18; TEMP 98; O2SAT 97
== END 2025-09-30 13:32 | disposition home or self-care (01) | DRG 710 ==
LOC: ER 12:42 → OVERFLOW 20:55 → TELE-WESTW 09-26 17:32
PROVIDERS: ADMIT Internal Medicine; ATTEND Internal Medicine
PROC: 027034Z Dilation of Coronary Artery, One Artery with Drug-eluting Intraluminal Device, Percutaneous Approach (ICD-10-PCS; principal; 2025-09-26)
PROC: 02F03ZZ Fragmentation in Coronary Artery, One Artery, Percutaneous Approach (ICD-10-PCS; 2025-09-26)
PROC: B211YZZ Fluoroscopy of Multiple Coronary Arteries using Other Contrast (ICD-10-PCS; 2025-09-26)
DX: A41.9 Sepsis, unspecified organism (principal); I21.09 ST elevation (STEMI) myocardial infarction involving other coronary artery of anterior wall; I21.19 ST elevation (STEMI) myocardial infarction involving other coronary artery of inferior wall; N17.0 Acute kidney failure with tubular necrosis; R65.20 Severe sepsis without septic shock; L03.116 Cellulitis of left lower limb; E11.22 Type 2 diabetes mellitus with diabetic chronic kidney disease; I12.9 Hypertensive chronic kidney disease with stage 1 through stage 4 chronic kidney disease, or unspecified chronic kidney disease; N18.31 Chronic kidney disease, stage 3a; F10.20 Alcohol dependence, uncomplicated; Z20.822 Contact with and (suspected) exposure to COVID-19; E78.5 Hyperlipidemia, unspecified; F17.210 Nicotine dependence, cigarettes, uncomplicated; E11.51 Type 2 diabetes mellitus with diabetic peripheral angiopathy without gangrene; L97.529 Non-pressure chronic ulcer of other part of left foot with unspecified severity; I25.10 Atherosclerotic heart disease of native coronary artery without angina pectoris; Z82.3 Family history of stroke; Z82.49 Family history of ischemic heart disease and other diseases of the circulatory system; Y90.9 Presence of alcohol in blood, level not specified
CPT/HCPCS: 36415; 71045; 73700; 80048; 80053; 80061; 80076; 80202; 80307; 81001; 82306; 82565; 82607; 83036; 83605; 83880; 84443; 84484; 85025; 85610; 85730; 87040; 87081; 87205; 87426; 87804; 92941; 92972; 93005; 93306; 93454; 93925; 93971; 96365; 96366; 99152; 99291; G0378; J2250; Q9967